=== PATIENT | female | born 1995 | race African-American/Black ===

== ENCOUNTER 2020-06-04 08:52 | Outpatient (CLI) | payer OTHER, SELFPAY ==
--- NOTE | ~2020-06-04 | US_ITS ---
EXAMINATION: US thyroid DATE: 06/04/2020 09:14 INDICATION: Goiter. TECHNIQUE: Multiple ultrasound images of the thyroid were obtained. COMPARISON: None. FINDINGS: The right thyroid lobe measures 5.0 x 1.8 x 2.0 cm. The left thyroid lobe measures 4.6 x 1.4 x 1.8 c m. In the right thyroid lobe, there is a 2.0 cm solid, isoechoic, tyysf-qbxq-zekc nodule with ill-de fined margin without echogenic foci (TI-RADS TR3). IMPRESSION: 1. Right thyroid nodule. Thyroid ultrasound is recommended in one year. Reviewed, dictated and finalized at location A. ERN CHANGER
== END 2020-06-04 08:53 ==
PROVIDERS: PCP Emergency Medicine; Visit Provider Emergency Medicine
DX: E04.9 Nontoxic goiter, unspecified (principal)
CPT/HCPCS: 76536

== ENCOUNTER 2020-08-12 14:45 | Outpatient (CLI) | payer OTHER, SELFPAY ==
--- NOTE | ~2020-08-12 | CT_ITS ---
EXAMINATION: CT abdomen pelvis wo/w con DATE: 08/12/2020 15:22 INDICATION: Hematuria TECHNIQUE: Computed tomography (CT) of the abdomen and pelvis was performed without intravenous contr ast. CT of the abdomen and pelvis was then performed with a total of 130 mL Omnipaque-350 intravenous contrast using a double-bolus technique for simultaneous opacification of the renal parenchyma and r enal collecting system. The dose-length product was 1287.05 mGy-cm. COMPARISON: None FINDINGS: Lung bases are clear. Heart size is normal. No pericardial or pleural effusion. Liver, gallbladder, s pleen, pancreas and bilateral adrenal glands are normal. Bowels including the appendix are normal.. There is a contrast-filled calyceal diverticulum at the upper pole of the right kidney. Bilateral kid neys are otherwise normal. 1 mm nonobstructing stone at the lower pole of the right kidney. No other urolithiasis or hydronephrosis. The mid to distal bilateral ureters remain decompressed and unopacifi ed with contrast. Contrast is seen at the bilateral ureterovesicular junctions with bilateral uretera l jets extending into the normal bladder. No urothelial irregularities identified along the contrast opacified portions of the renal collecting systems or ureters. 6.6 x 4.0 x 4.2 cm fat, soft tissue and fluid containing left ovarian dermoid. Right ovary and anteve rted uterus are unremarkable. Small amount of likely physiologic free fluid in the pelvis. Shotty darlene ateral inguinal lymph nodes. No pathologically enlarged abdominal or pelvic lymphadenopathy. Bones ar e unremarkable. IMPRESSION: 1. 1 mm nonobstructing right renal stone. 2. 6.6 x 4.0 x 4.2 cm left ovarian dermoid. Reviewed, dictated and finalized at location A.
== END 2020-08-12 14:46 ==
LOC: MICIMG 14:45
PROVIDERS: PCP Emergency Medicine; Visit Provider Emergency Medicine
DX: R31.9 Hematuria, unspecified (principal); N20.0 Calculus of kidney; D27.1 Benign neoplasm of left ovary
CPT/HCPCS: 74178; Q9967

== ENCOUNTER 2020-10-17 16:45 | Emergency (ER) | payer OTHER, SELFPAY ==
--- NOTE | ~2020-10-17 | XR_ITS ---
XR hand RT min 3V DATE: 10/17/2020 17:40 INDICATION: Smashed hand in door yesterday. Injury to the third and fourth digits. TECHNIQUE: 3 views COMPARISON: None FINDINGS: No fracture or dislocation, periosteal reaction or bone destruction. Joint spaces are prese rved. IMPRESSION: Negative Reviewed, dictated and finalized at location B. IMPRESSION: Negative
[2020-10-17 17:07] VITALS: BP 126/72; PULSE 105; RESP 16; TEMP 37.4; O2SAT 100
--- NOTE | 2020-10-17 17:32 | PC.NURSE ---
Pt to xray.
--- NOTE | 2020-10-17 19:45 | ED.UPPEXIN ---
HPI - Extremity Injury (Upper) General Chief Complaint: Extremity Injury, Upper Stated Complaint: R 4TH DIGIT INJURY Time Seen by Provider: 10/17/20 18:48 Source: patient Mode of arrival: ambulatory Limitations: no limitations History of Present Illness HPI narrative: This is a 25 year old female that presents to the ER for injury to the right hand sustained just prior to arrival. Reports she got her hand caught in a fireplace door. Reports decreased ROM in the 3rd and 4th fingers due to pain with bruising to the nails. Denies numbness. Related Data Allergies Allergy/AdvReac Type Severity Reaction Status Date / Time latex Allergy Unknown HIVES Verified 11/02/16 15:46 Review of Systems Review of Systems: Narrative: CONSTITUTIONAL: Denies fever MUSCULOSKELETAL: Reports joint pain, and myalgia. NEUROLOGIC: Denies numbness All systems reviewed & are unremarkable except as noted in HPI and below PMFSH Past Medical History Medical History (Updated 10/17/20 @ 19:51 by Lesley Parnell PA-C) History of seasonal allergies Social History Social History (Updated 10/17/20 @ 19:47 by Lesley Parnell PA-C) Smoking status: Never smoker Exam Narrative: Exam Narrative: GENERAL: Well-appearing, well-nourished, and in no acute distress. HEAD: Normocephalic, atraumatic. EYES: EOMI. EXTREMITIES: Normal range of motion. Mild edema about the right 3rd and 4th fingers distal phalanx. Mild bruising to the nailbeds. Normal radial pulses. Normal sensation SKIN: Warm, dry, no rash. NEURO: No focal deficits. Alert and oriented x3. PSYCH: Normal mood and affect Course Vital Signs Vital signs: Vital Signs Temperature 99.3 F 10/17/20 17:07 Pulse Rate 105 H 10/17/20 17:07 Respiratory Rate 16 10/17/20 17:07 Blood Pressure 126/72 10/17/20 17:07 Pulse Oximetry 100 10/17/20 17:07 Temperature 99.3 F 10/17/20 17:07 Pulse Rate 105 H 10/17/20 17:07 Respiratory Rate 16 10/17/20 17:07 Blood Pressure 126/72 10/17/20 17:07 Pulse Oximetry 100 10/17/20 17:07 MDM - Extremity Injury (Upper) MDM Narrative Medical decision making narrative: Patient presents to the emergency department for injury to the right third and fourth finger. Right hand x-ray is without acute osseous abnormalities. Patient instructed to rest, ice and take ywxq-zbw-liejyoj pain medication. She is to follow-up with primary care doctor. She was given warnings to return to the ER Imaging Data Radiologist's impression: ITS Impressions Hand X-Ray 10/17/20 17:42 IMPRESSION: Negative Critical Care Time Critical Care Time Critical Care Time: No Discharge Plan Discharge Clinical Impression: Contusion of finger of right hand Qualifiers: Encounter type: initial encounter Finger: unspecified finger Qualified Code(s): S60.00XA - Contusion of unspecified finger without damage to nail, initial encounter Patient Disposition: Home, Self-Care Condition: Stable Instructions: Contusion in Adults (ED), Crush Injury (ED) Additional Instructions: Return to the emergency department if you experience fever, redness and swelling of your hand, numbness, or any other symptoms that are concerning to you Rest. Elevate. Ice the area. Tylenol or ibuprofen as needed for pain Follow-up with your primary care doctor Follow-up/Referrals: Tejas Rios MD [Primary Care Provider] - 1 Week
[2020-10-17 20:45] VITALS: BP 121/80; PULSE 98; RESP 17; O2SAT 99
== END 2020-10-17 20:45 | disposition home or self-care (01) ==
PROVIDERS: Emergency Provider Emergency Medicine; PCP Emergency Medicine
DX: S60.00XA Contusion of unspecified finger without damage to nail, initial encounter (principal); W23.0XXA Caught, crushed, jammed, or pinched between moving objects, initial encounter
CPT/HCPCS: 73130; 99283

== ENCOUNTER 2022-03-05 10:54 | Outpatient (CLI) | payer OTHER, SELFPAY ==
--- NOTE | ~2022-03-05 | US_ITS ---
EXAMINATION: US thyroid DATE: 03/05/2022 11:11 INDICATION: Thyroid nodule. TECHNIQUE: Multiple ultrasound images of the thyroid were obtained. COMPARISON: Ultrasound thyroid 06/04/2020 FINDINGS: The right thyroid lobe measures 4.5 x 1.8 x 1.8 cm. The left thyroid lobe measures 4.4 x 2.1 x 1.6 c m. In the right thyroid lobe, there is a 4 mm nodule. In the left thyroid lobe, there is a 3 mm nodu le. IMPRESSION: 1. Small thyroid nodules, likely not clinically significant. No follow-up is needed. Reviewed, dictated and finalized at location A. ICAL ASSOCIATE IMPRESSION: 1. Small thyroid nodules, likely not clinically significant. No follow-up is ne eded.
== END 2022-03-05 10:55 ==
LOC: MICIMG 10:56
PROVIDERS: PCP Emergency Medicine; Visit Provider Emergency Medicine
DX: E04.2 Nontoxic multinodular goiter (principal)
CPT/HCPCS: 76536

== ENCOUNTER 2023-07-19 14:33 | Outpatient (CLI) | payer OTHER, SELFPAY ==
--- NOTE | ~2023-07-19 | XR_ITS ---
[id number] 07/19/2023 14:48 INDICATION: Left knee pain PROCEDURE: 2 views left knee COMPARISON: No prior studies for comparison. FINDINGS: Fracture, dislocation or subluxation is not identified. No significant joint effusion. The soft tissues appear within normal limits. No foreign bodies are identified. IMPRESSION: 1: NO ACUTE BONE OR JOINT ABNORMALITY IDENTIFIED. Reviewed, dictated and finalized at location A.
== END 2023-07-19 14:34 ==
LOC: MICIMG 14:35
PROVIDERS: PCP Emergency Medicine; Visit Provider Emergency Medicine
DX: M25.562 Pain in left knee (principal)
CPT/HCPCS: 73560

== ENCOUNTER 2024-06-04 04:55 | Emergency (ER) | payer OTHER, SELFPAY ==
[2024-06-04 04:58] VITALS: BP 129/83; PULSE 75; RESP 20; TEMP 36.3; O2SAT 100
[2024-06-04 06:33] VITALS: BP 133/98; PULSE 70; RESP 15; O2SAT 100
[2024-06-04] MEDS: SODIUM CHLORIDE 0.9% IV 1,000 ML 999 ML IV CONT (08:14)
[2024-06-04] MEDS: ONDANSETRON INJ 4 MG/2 ML VIAL IV PUSH (08:15)
--- NOTE | 2024-06-04 08:15 | ED.GENADULT ---
HPI - General Adult General Chief complaint: Abdominal Pain Stated complaint: abd pain Time Seen by Provider: 06/04/24 06:56 History of Present Illness HPI narrative: A 29-year-old female presenting ED with chief complaint of left lower quadrant abdominal pain. Pain started midnight she was sleeping. Is a sharp pain alternates to doll comes and goes. It is located in left lower quadrant. Patient has a known 7 cm cyst ovary. She has had nausea but no vomiting. No diarrhea. No fevers chills chest pain difficulty urinary symptoms. No dysuria vaginal discharge. Related Data Allergies Allergy/AdvReac Type Severity Reaction Status Date / Time latex Allergy Unknown HIVES Verified 06/04/24 05:02 [facility] Past Medical History Medical History History of seasonal allergies Social History Social History Smoking status: Never smoker Exam Narrative: APPEARANCE: No apparent distress. Head: atraumatic. EYES: EOMI, NOSE: Atraumatic NECK: Trachea midline RESPIRATORY: No increased rate of breathing clear to auscultation CARDIOVASCULAR: RRR, ABDOMINAL: Non-distended soft nontender no guarding rebound no CVA tenderness MUSCULOSKELETAl: No obvious deformities NEURO: Alert. Moving 4/4 extremities SKIN:: Warm, dry. Normal color PSYCHIATRIC: Normal affect Course Vital Signs Vital signs: Vital Signs Temperature 97.4 F L 06/04/24 04:58 Pulse Rate 75 06/04/24 04:58 Respiratory Rate 20 06/04/24 04:58 Blood Pressure 129/83 06/04/24 04:58 Pulse Oximetry 100 06/04/24 04:58 Oxygen Delivery Room Air 06/04/24 04:58 Temperature 97.4 F L 06/04/24 04:58 Pulse Rate 60 06/04/24 09:57 Respiratory Rate 16 06/04/24 09:57 Blood Pressure 137/87 06/04/24 09:57 Pulse Oximetry 100 06/04/24 09:57 Oxygen Delivery Room Air 06/04/24 04:58 Medical Decision Making MDM Narrative Medical decision making narrative: -Course: 29-year-old female presenting pain in the setting of a known ovarian cyst. Transvaginal ultrasound showed a large dermoid cyst. No evidence of torsion. CT redemonstrated the same. Re-evaluation patient is resting comfortably in bed. She will be discharged with pain medication instructed follow-up with her OBGYN for further management. Given return precautions for severe pain. -DDX includes but is not limited to: Ovarian torsion, ovarian cyst, colitis, gastroenteritis, viral syndrome Vital Signs Vital Signs: Vital Signs Temperature 97.4 F L 06/04/24 04:58 Pulse Rate 75 06/04/24 04:58 Respiratory Rate 20 06/04/24 04:58 Blood Pressure 129/83 06/04/24 04:58 Pulse Oximetry 100 06/04/24 04:58 Oxygen Delivery Room Air 06/04/24 04:58 Temperature 97.4 F L 06/04/24 04:58 Pulse Rate 60 06/04/24 09:57 Respiratory Rate 16 06/04/24 09:57 Blood Pressure 137/87 06/04/24 09:57 Pulse Oximetry 100 06/04/24 09:57 Oxygen Delivery Room Air 06/04/24 04:58 Lab Data 06/04/24 08:19 06/04/24 08:19 Labs: Lab Results 06/04/24 Range/Units 08:19 WBC 10.6 H (4.5-10.0) K/mm3 RBC 4.69 (4.2-5.4) M/mm3 Hgb 14.1 (12.0-15.0) g/dL Hct 44.3 (37.0-47.0) % MCV 94.5 (80-100) fl MCH 30.1 (26-34) pg MCHC 31.8 L (32-36) g/dl RDW 13.5 (11.5-14.5) % Plt Count 395 H (150-375) k/mm3 MPV 9.3 (7.4-10.4) fl Immature Gran % (Auto) 0.3 (0-0.5) % Neut % (Auto) 77.3 H (45.5-73.1) % Lymph % (Auto) 16.7 L (18.3-44.2) % [place] % (Auto) 5.2 (2.6-8.5) % Eos % (Auto) 0.3 (0-4.4) % Baso % (Auto) 0.2 (0.2-1.2) % Lymph # (Auto) 1.77 (0.9-3.2) K/mm3 [place] # (Auto) 0.6 (0.1-0.6) K/mm3 Eos # (Auto) 0.0 (0-0.3) K/mm3 Baso # (Auto) 0.0 (0.0-0.1) K/mm3 Abs Immat Gran (auto) 0.03 (0.00-0.031) K/mm3 Absolute Neuts (auto) 8.2 H (1.3-6.7) K/mm3 Absolute Nucleated RBC 0.000 (0.0-0.012) K/mm3 Nucleated RBC % 0.0 (0.0-0.2) % Sodium 139 (137-145) mmol/L Potassium 3.5 (3.4-5.0) mmol/L Chloride 101 (98-107) mmol/L Carbon Dioxide 25 (22-30) mmol/L Anion Gap 13 H (4-12) mmol/L BUN 11 (7-17) mg/dL Creatinine 0.79 (0.7-1.0) mg/dL Estim Creat Clear Calc 55 ml/min Estimated GFR > 60 (59 - ) Glucose 87 (65-110) mg/dL Calcium 9.8 (8.4-10.2) mg/dL Total Bilirubin 1.9 H (0.2-1.3) mg/dL AST 21 (14-36) U/L ALT 17 (6-35) U/L Alkaline Phosphatase 93 (38-126) U/L Total Protein 9.0 H (6.3-8.2) g/dL Albumin 4.7 (3.5-5.1) g/dL Lipase 45 (23-300) U/L Urine Color Yellow (Yellow) Urine Appearance Clear (Clear) Urine pH 6.5 (5.0-9.0) Ur Specific [place] 1.021 (1.001-1.035) Urine Protein Negative (Negative) mg/dL Urine Glucose (UA) Negative (Negative) mg/dL Urine Ketones Trace H (Negative) mg/dL Ur Blood (Man) Negative (Negative) Urine Nitrate Negative (Negative) Urine Bilirubin Negative (Negative) Urine Urobilinogen 1.0 (<2.0) mg/dL Leukocyte Esterase Rfl Negative (Negative) TONIE/UL Urine Test Negative Discharge Plan Discharge Clinical Impression: Ovarian cyst Patient Disposition: Home, Self-Care Condition: Stable Instructions: Antibiotic Form, Ovarian Cyst (ED) Additional Instructions: You were seen in the emergency department for abdominal pain. This is likely caused by a large dermoid cyst on your ovary. Please follow-up with your OBGYN for further management. If you develop severe pain, intractable nausea vomiting or if your condition worsens please return to ED for re-evaluation. You can use jnzh-tvk-oosbrnu Motrin/Tylenol for pain. Patient Language: Amharic Follow-up/Referrals: Tejas Rios MD [Primary Care Provider] -
[2024-06-04] MEDS: HYDROmorphone HCL INJ (*CRX) 1 MG/ML SYR 0.5 MG IV PUSH (08:16)
[2024-06-04 08:27] LABS: Basophils Percent Auto 0.2 % (0.2-1.2); Eosinophils Percent Auto 0.3 % (0-4.4); Hematocrit 44.3 % (37.0-47.0); Hemoglobin 14.1 g/dL (12.0-15.0); Immature Granulocyte Absolute 0.03 K/mm3 (0.00-0.031); Immature Granulocyte Percent A 0.3 % (0-0.5); Lymphocytes Absolute Auto 1.77 K/mm3 (0.9-3.2); Lymphocytes Percent Auto 16.7 % (18.3-44.2); Mean Corpuscular HGB Conc 31.8 g/dl (32-36); Mean Corpuscular Hemoglobin 30.1 pg (26-34); Mean Corpuscular Volume 94.5 fl (80-100); Mean Platelet Volume 9.3 fl (7.4-10.4); Monocytes Absolute Auto 0.6 K/mm3 (0.1-0.6); Monocytes Percent Auto 5.2 % (2.6-8.5); Neutrophils Absolute Auto 8.2 K/mm3 (1.3-6.7); Neutrophils Percent Auto 77.3 % (45.5-73.1); Platelet Count Result 395 k/mm3 (150-375); Red Blood Count 4.69 M/mm3 (4.2-5.4); Red Cell Distribution Width 13.5 % (11.5-14.5); White Blood Count 10.6 K/mm3 (4.5-10.0)
[2024-06-04 08:34] LABS: Add Urine Microscopic? NO; Appearance Urine Clear (Clear); Bilirubin Urine Negative (Negative); Blood Urine Negative (Negative); Color Urine Yellow (Yellow); Glucose Urine UA Negative (Negative); Ketones Urine Trace mg/dL (Negative); Leukocyte Esterase Ur Negative LEU/UL (Negative); Nitrate Urine Negative (Negative); Protein Urine Negative (Negative); Specific Grav Ur 1.021 (1.001-1.035); pH Urine 6.5 (5.0-9.0)
[2024-06-04 08:36] LABS: Alanine Aminotransferase 17 U/L (6-35); Albumin Level 4.7 g/dL (3.5-5.1); Alkaline Phosphatase 93 U/L (38-126); Anion Gap 13 mmol/L (4-12); Aspartate Amino Transferase 21 U/L (14-36); Bilirubin,Total 1.9 mg/dL (0.2-1.3); Blood Urea Nitrogen 11 mg/dL (7-17); Calcium 9.8 mg/dL (8.4-10.2); Carbon Dioxide 25 mmol/L (22-30); Chloride 101 mmol/L (98-107); Estimated CRCL calculation 55 ml/min; Estimated Glomerular Filt Rate > 60; Glucose 87 mg/dL (65-110); Lipase 45 U/L (23-300); Potassium 3.5 mmol/L (3.4-5.0); Sodium 139 mmol/L (137-145)
[2024-06-04 08:56] LABS: Pregnancy On Board Control Positive; Urine Pregnancy Test Negative
[2024-06-04 09:57] VITALS: BP 137/87; PULSE 60; RESP 16; O2SAT 100
[2024-06-04 10:23] VITALS: BP 131/93; PULSE 110; RESP 20; O2SAT 100
== END 2024-06-04 10:24 | disposition home or self-care (01) ==
PROVIDERS: Student in an Organized Health Care Education/Training Program; Emergency Provider Emergency Medicine; PCP Emergency Medicine
DX: D27.1 Benign neoplasm of left ovary (principal); N83.11 Corpus luteum cyst of right ovary
CPT/HCPCS: 36415; 74177; 76830; 76856; 80053; 81003; 81025; 83690; 85025; 96361; 96374; 96375; 99284; J1171; J2405; J7030; Q9967

== ENCOUNTER 2024-06-12 01:08 | Day surgery (SDC) | payer OTHER, SELFPAY ==
[2024-06-11 08:52] VITALS: BMI 25.6
--- NOTE | 2024-06-11 08:53 | PC.NURSE ---
Report to the Outpatient Waiting Room, entrance under the green pavilion located off [facility], at time _0730_ on date _[id number]_. Planned Procedure Time: _0930_.? Time changes happen often and if your time is changed the preop area will call you the afternoon before. - You and your visitor will be asked to self-screen and do not enter if you have any COVID symptoms. Please call surgeon if you need to reschedule. - A mask is optional within the hospital at this time. Patients may have clear liquids (water, carbonated beverages, clear teas, apple juice) until 3 hours prior to surgery with a maximum of 20 ounces. - No food from midnight until time of surgery and no smoking, or chewing tobacco (or any form of nicotine). No chewing gum, candy or mints. Take only the following medications with a SIP of water on the morning of surgery: ___None____ DO NOT STOP ANY OF YOUR OTHER PRESCRIPTION MEDICATIONS PRIOR TO SURGERY EXCEPT THE FOLLOWING Hold all vitamins and supplements for 3 days per anesthesiologist. Medications to discontinue per physician Date to take last dose Please no make-up, nail citizen of [place], hairspray, perfume, deodorant, or body powder the day of surgery.? No jewelry (including any body piercings) or valuables the day of surgery, leave them at home.? Please take a shower or bath the night before, or the morning of, surgery with an antibacterial soap.? Wear comfortable, loose fitting clothing.? - Jewelry must be removed prior to entering the operating room.? Rings and piercings that are not removed may be cut off. - The hospital will not accept responsibility for valuables.? - Please leave all valuables, including medications, at home the day of surgery. If you are going home after surgery, a licensed road train driver must drive you home.? - NO public transportation without another adult if you receive anesthesia. - We recommend that an adult stay with you for 24 hours following discharge. - We also recommend that you do not drive, make important decision, drink alcoholic beverages, or take any drugs that were not prescribed by your health care provider for at least 24 hours after your discharge time. Follow any additional instructions given to you from your surgeon. Telephone instructions given to __Tamikorashawn___and asked if any additional questions and then verbalized understanding. Patient advised to call surgeon office or pre surgery nurse liaison [phone] if any additional questions.
--- NOTE | 2024-06-11 12:54 | P.PNAN_ITS ---
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 [facility] Past Medical History Medical History (Updated 06/11/24 @ 12:57 by Ab Arshad DO) Depression Anxiety History of seasonal allergies Social History Social History (Updated 06/12/24 @ 06:53 by Ab Arshad DO) Smoking status: Former smoker Alcohol intake: current Living arrangements: with family Spiritual care concerns: No Anes - Eval Final PreProcedure Day of Procedure 06/11/24 12:54 Patient weight: overweight Heart: regular rate and rhythm Lungs: clear to auscultation Airway: Mallampati scale class II Neurological: alert and oriented Last oral intake: >/= 8 hours ASA classification: II Emergent: no Anesthetic plan: proceed Anesthesia type and monitoring: general ETT and standard monitoring Results Review: All pre-operative results and documents have been reviewed as part of the pre- operative evaluation. Informed Consent: The patient's anesthetic plan and its attendant risks and benefits were discussed with the patient/family/POA. Questions were solicited and answers provided to the satisfaction of the patient/family/POA.
[2024-06-12] VITALS (9 sets, daily range): BP systolic 117–168; BP diastolic 69–108; PULSE 67–89; RESP 12–16; TEMP 36.1–36.4; O2SAT 99–100
--- OUTSIDE RECORDS SUMMARY | 2024-06-12 01:14 | XMS_ITS | Clinical Summary ---
Author Organization [facility] HealthCare Care Team Providers Care Interpreter And Translator Name Role Phone Tejas Rios MD Primary Care Provider [phone] Allergies No known active allergies Medications amitriptyline (ELAVIL) 25 mg tablet Take 3 tablets (75 mg total) by mouth nightly. 90 tablet 5 01/11/20 18 Active Additional Information Patient not taking.Reported on 09/15/2020 topiramate (Topamax) 25 mg tablet take 1 Tablet by oral route TID 11/02/19 20 Active mirtazapine (REMERON АННА-TAB) 15 mg disintegrating tablet Take 15 mg by mouth nightly Takes half a pill at night Active Active Problems Problem Noted Date Diagnosed Date Thyroid nodule 09/15/2020 Assessment & Plan (09/15/2020 4:34 PM CDT): I looked at Mrs. gwen kelley thyroid under our ultrasound machine. I see a very normal thyroid gland without any well-defined, solid nodules. No intervention is indicated at this time Headache(784.0) 01/04/2017 Migraine with aura and witho ut status migrainosus, not intractable 01/04/2017 Surgical History Surgery Date Site/Laterality Comments PILONIDAL CYSTECTOMY Medical History Medical History Date Comments Depression Memory change Anxiety Sleep disorder Fatigue Chronic headaches Neck pain Numbness Sensation of both heat and cold Swelling Trouble breathing Family History Medical History Relation Name Comments Cancer Father Migraines Mother Hypertension Other Stroke Other Relation Name Status Comments Father Mother Other Social History Tobacco Use Types Packs/Day Years Used Date Smoking Tobacco: Former Smokeless Tobacco: Never Alcohol Use Standard Drinks/Week Comments Yes 0 (1 standard drink = 0.6 oz pur e alcohol) PHQ-2 Answer Date Recorded PHQ-2 Total Score (If total score is 3 or more points, staff should administer the PHQ-9) 0 09/15/2020 Personal Safety Answer Date Recorded Getting School Help Needed Not on file 05/31 Comments Unknown Sex and Gender Information Value Date Recorded Sex Assigned at Not on file Legal 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 Gender Identity Not on file Sexual Orientation Not on file Obstetrics History Last Filed Vital Signs Vital Sign Reading Time Taken Comments Blood Pressure 108/80 09/15/2020 12:08 PM CDT Pulse 87 09/15/2020 12:08 PM CDT Temperature 37 C (98.6 F) 01/22/2013 7:23 PM CDT Respiratory Rate 12 09/15/2020 12:08 PM CDT Oxygen Saturation 100% 01/22/2013 7:23 PM CDT Inhaled Oxygen Concentration - - Weight 76.9 kg (169 lb 9.6 oz) 09/15/2020 12:08 PM CDT Height 160 cm (5' 3 ) 09/15/2020 12:08 PM CDT Body Mass Index 30.04 09/15/2020 12:08 PM CDT Plan of Treatment Not on file Insurance Care Teams Interpreter And Translator Relationship Specialty Start Date End Date Tejas Rios MD [address] [place] [address] PCP - General Family Medicine 07/15/20
--- OUTSIDE RECORDS SUMMARY | 2024-06-12 01:14 | XMS_ITS | Continuity of Care Document ---
Author Organization [facility] Address [address] [place] [address] Phone Care Team Providers Care Weir Fisherman Name Role Phone Geronimo Mobley MD Unavailable Unavailable Advance Directives Directive Yes / No Effective Date File Name No Information Encounters Encounter Description Practice Location Reason(s) For Visit Diagnoses Date Provider Providers Copied on Encounter [facility], [address], [place], [place], [id number], [place] tel:[phone] [facility] No Information Itz Melton. [address] , [place], [place], [id number], [place]. tel:[phone] Referring Provider: Joss Moore, [address], [place], [address]. tel:[phone] Family History Family Member Type Diagnosis Age At Onset No Information Payers Payer name Insurance type Covered democrat ID Authoriza tion(s) BCBS INACTIVE OUT OF STATE [id number] Social History Type Description Quantity Date Captured Comments Sex Female Smoking Status No Information Chief Complaint And Reason For Visit No Information Reason For Referral Reason For Referral No Information History Of Present Illness Encounter Date Complaint History Of Prese nt Illness No Information Functional Status Date Functional Assessmen t No Information Instructions Date Instruction Additional Infor mation No Information Assessments Type Assessment Date No Information Patient Care Teams Name Effective Dates (start - stop) Status Members No Information
--- OUTSIDE RECORDS SUMMARY | 2024-06-12 01:14 | XMS_ITS | Data Portability ---
Author Organization [place] [facility], Main Office Address [address] [place] [address] Care Team Providers Care Watch Manufacturing Supervisor Name Role Phone GARIMA CATARINA Primary Care Provider CATARINA [employer] Referring Provider Assessment Encounter Date Assessment Date Assessment LastModified by Organization Details LastModified Time 07/31/2023 07/31/2023 28-year-old patient presents today with left knee pain and swelling that has been going on for the last month. She denies any injury. She states that she played soccer growing up and had multiple sports-related injuries in the legs but no fractures or injuries that needed surgery. Over the last few weeks she has been feeling a sharp pain under her kneecap and swelling. She states that she recently got a job where she is doing more standing and walking and believes this could be why. For treatment she has tried wearing a brace when she is doing physical activities and taking Tylenol. Review of systems per patient questionnaire Imaging: X-rays reviewed show no acute bony abnormality, no fracture. Preserved joint spaces throughout. Physical exam: Nonantalgic gait. No edema noted today. Negative patellar grind. No pain with palpitation around the knee. Some discomfort with deep flexion. Negative Alvaro's. Stable Nikhil's with firm endpoint, stable varus/ valgus stress. Sensation intact throughout. We will start with a course of therapy exercises that she can work on at home. We will provide her with an exercise handout. We also recommend taking anti-inflammator ies if the swelling and pain returns. She can wear a brace as needed if it is comfortable for her. We can see her back as needed if the pain and swelling progress. She is in agreement with this plan. [email or web address] Not available 08/01/2023 17:44:05 Plan of Treatment Reminders Order Date Submit Date Provider Last Modified By Organization Details Last Modified Time Details Appointments None record ed. Lab None record ed. Referral None record ed. Procedures None record ed. Surgeries None record ed. Imaging None record ed. Medication Orders None record ed. Patient TargetsNo targets recorded. Patient InstructionsNo instructions recorded. Reason for Referral None Reported. Results Created Date Observation Date Name Description Value Unit Range Abnormal Flag Note LastModifiedBy Organization Detail LastModifiedTime 08/13/1907/19/2023 XR, knee No observ ation record ed. [email or web address] Not Available 2023 16:20:42 Result Notes None recorded. Problems Name Problem SNOMED Code Status Onset Date Resolution Date Notes Provider Name and Address Organization Details Recorded Time Pain of left knee joint 396187309249630 Active 2023 [facility] [place], [facility] [employer] [facility] 15:27:33 Problem Notes None recorded. Procedures Surgical History None recorded. Imaging Results Imaging Date Name Status LastModified by Organiz ation Details LastModified Time 07/19/2023 XR, knee completed [email or web address] Information no t available 08/13/2023 16:20:42 Procedure Notes None recorded. Medical Equipment None Reported. Medications Name Sig Start Date Stop Date Status Note LastModified by Organization Details LastModified Time meloxicam 15 mg tablet TAKE 1 TABLET BY MOUTH EVERY DAY active Not Available Not Available No t Available olanzapine 5 mg tablet TAKE 1 TABLET BY MOUTH EVERYDAY AT BEDTIME active Not Available Not Available No t Available olanzapine 10 mg tablet TAKE 1 TABLET BY MOUTH EVERY DAY 07/30 completed Not Available Not Available Not Available metronidazo le 500 mg tablet TAKE 1 TABLET BY MOUTH EVERY 12 HOURS FOR 7 DAYS active Not Available Not Available No t Available albuterol sulfate HFA 90 mcg/actuati on aerosol inhaler INHALE 2 PUFFS BY MOUTH EVERY 4-6 HOURS NEEDED FOR WHEEZING OR SHORTNESS OF BREATH active Not Available Not Available No t Available lurasidone 40 mg tablet TAKE 1 TABLET BY MOUTH EVERY DAY IN THE EVENING WITH FOOD active Not Available Not Available No t Available Ajovy 225 mg/1.5 mL subcutaneou s auto-inject or INJECT THE CONTENTS OF 1 PEN UNDER THE SKIN IN THE ABDOMEN/T HIGH/UPPE R ARM ONCE MONTHLY active Not Available Not Available No t Available Vitals Date Recorded Body height Body mass index (BMI) Body weight Pain severity - 0-10 verbal numeric rating [Score] - Reported Provider Name and Address Organization Details Last Updated DateTime 07/31/2023 160.02 cm 26.6 kg/m2 12362.86 g 4 [facility] [place] [facility] [address] [facility] 07/31/2023 15:25:50 Social History Question Answer Notes LastModified by Organizat ion Details LastModified Time Tobacco Smoking Status Unknown If Ever Smoked [facility] [place] null, [facility] [address] [facility] 07/31/2023 15:27:09 What Is Your Level Of Alcohol Consumption? Occasional [email or web address] Information not available 07/31/2023 What Was The Date Of Your Most Recent Tobacco Screening? 07/31/2023 Information not available 07/31/2023 Sex: Unknown Functional Status None recorded. Mental Status None recorded. Family History Relationship Description Onset Age of this Age Resolved Age Notes LastModified by Organization Details LastModified Time Mother Family history of malignant neoplasm [email or web address] Not available 2023 15:26:24 Maternal Grandmother Heart disease Not available 2023 15:26:40 Maternal Grandmother Hypertensive disorder [email or web address] Not available 2023 15:26:53 Medical History No medical history recorded. Gynecological HistoryNo gynecological history recorded. Obstetrics History GPAL:G 0 P 0 0 0 0 Past Encounters Encounter ID Performer Location Encounter Start Date Encounter Closed Date Diagnosis/Indication Diagnosis SNOMED-CT Code Diagnosis ICD10 Code Diagnosis Note [id number] Renetta Holm NP [facility] [address] [place] [address] 07/31/2023 14:55:31 07/31/2023 15:40:30 Pain of left knee joint 1453873289 00772 M25.562 Health Concerns Section Related Observation LastModified by Organization Detai ls LastModified Time None Recorded Concern Status LastModified by Organization Details LastModified Time None Recorded Advance Directives Directive None Recorded Payers Encounter Date Sequence Insurance Name Policy Number Policy Maddox Covered Member ID Maddox Member ID Guarantor Name 07/31/2023 1 [facility] [id number] Monroe Mckeon [id number] [facility] [id number] 1GGAL Mckeon OBGyn Episode No OBEpisode recorded.
--- OUTSIDE RECORDS SUMMARY | 2024-06-12 01:14 | XMS_ITS | Data Portability ---
Author Organization [facility] Address [address] [place] [address] [place] [address] Care Team Providers Care Agents' Records Clerk Name Role Phone CATARINA PAINTING Primary Care Provider Assessment Encounter Date Assessment Date Assessment LastModified by Organization Details LastModified Time 04/23/2024 04/23/2024 Annual gynecological exam performed. Patient will come back in a year unless there are new symptoms. [email or web address] Not available 04/23/2024 12:23:05 Plan of Treatment Reminders Order Date Submit Date Provider Last Modified By Organization Details Last Modified Time Details Appointments SURG Lap Ovarian Cystectom y 2024 07:30A Nataliya CONWAY MD Not available Not available Not available SURG POST OP 2024 01:15P Nataliya CONWAY MD Not available Not available Not available Lab None recorded. Referral None recorded. Procedures None recorded. Surgeries hysterosc opy, removal of foreign body (SURG) [address], [facility] [address], [address], 06/08/2024 10:03:17 laparosco pic ovarian cystectom y (SURG) [address], [facility] [address], [address], 06/08/2024 09:47:41 Imaging US, transvagi nal 2024 025 CYNTHIA [place], [address], [address], [place], [address], 06/10/2024 18:46:27 US, transvagi nal 2024 025 [email or web address] [place], [address], [place], [address], 05/13/2024 20:09:28 US, pelvis, complete 2024 025 CYNTHIA [place], [address], [place], [address], 05/04/2024 04:01:33 Medication Orders None recorded. Patient TargetsNo targets recorded. Patient InstructionsNo instructions recorded. Reason for Referral None Reported. Results Created Date Observation Date Name Description Value Unit Range Abnormal Flag Note LastModifiedBy Organization Detail LastModifiedTime 04/23/1904/23/2024 IMAGE GUIDE D PAP AND HPV REGAR DLESS image guided Pap, HPV regardless of Pap result SEE RESULT S BELOW CASE REPOR T: Cytol ogy Gynec ologi radha Repor t Case: [id number] Autho heidi g Provi marck: Natalya Morgan, CARISA Colle cted: 04/23 1506 Order ing Locat ion: [place] [facility] Recei nick: 04/24 0841 First Scree n: Ximena Aiken h, CT Speci men: Scree marissa Pap - Image d, Cervi x STATE MENT OF ADEQU ACY: Satis facto ry for evalu ation Trans forma tion zone compo nent prese nt ----- ----- ----- ----- ----- ----- ----- ----- ----- ----- ----- ----- ----- ----- ----- ----- ----- ---- FINAL DIAGN OSIS: Negat suzette for Intra epith elial Lesjosiane n or Chago kellogg (NIL) . Shift in hilario sugge stive of bacte rial vagin osis. Elect deion rossrick sandoval d by Ximena Aiken, CT on 2024 at 1155 [employer] ----- ----- ----- ----- ----- ----- ----- ----- ----- ----- ----- ----- ----- ----- ----- ----- ----- ---- HPV RESUL TS: HPV mRNA E6/E7 : No HPV mRNA Detec laura NOTE: This high risk HPV mRNA assay detec ts fourt een high- risk HPV types (16, 18, 31, 33, 35, 39, 45, 51, 52, 56, 58, 59, 66, 68) witho ut diffe renti ation . COMME NT: This speci men was revie wed by a Cytot echno logis t and/o r Patho logis t (as indic ated in this repor t) after evalu ation using the Thinp rep Imagi ng Syste m. CLINI RADHA INFOR MATIO N: Menst rual Statu s: LMP (if appli cable ): Clini radha Histo ry/Pr eviou s Pap: Type of Neopl patrice (if appli cable ): Signi fican t Clini radha Findi ngs: Other Histo ry: Hormo tyler (if appli cable ): PAP EDUCA JULIANO L NOTE: The Pap Test is a scree marissa test with an inher ent false negat suzette rate. Liqui d-bas ed sampl ing may decre ase, but will not elimi deb, false negat suzette resul ts. A negat suzette resul t does not precl ude the prese nce and/o r devel opmen t of disea se, since the prese nce of abnor mal cells in the sampl e depen ds on the locat ion of the lesio n and sampl ing techn ique. [place] nued regul ar scree marissa is the best metho d of cance r preve ntion . If repor laura cytol ogic findi ng do not corre late with physi radha and/o r histo rical findi ngs, furth er inves tigat ion is recom rosario d, as clini martha miles nted. Not Available [facility] (Lab) [address], [place], [address], 04/30/2024 12:59:23 04/23/19 25 04/23/2024 TRICH OMONA S VAGIN NIDIA (RRNA ) trichomonas vaginalis ribosomal RNA (rrna) Negati ve negati ve Not Available [facility] (Lab) [address], [place], [address], 04/30/2024 12:59:24 04/23/19 25 04/23/2024 CT/GC (BLANCA) , THINP REP VIAL chlamydia trachomatis, PCR Negati ve negati ve Not Available [facility] (Lab) [address], [place], [address], 04/30/2024 12:59:24 04/23/19 25 04/23/2024 CT/GC (BLANCA) , THINP REP VIAL neisseria gonorrhoeae, PCR Negati ve negati ve Not Available [facility] (Lab) [address], [place], [address], 04/30/2024 12:59:24 05/13/19 25 05/13/2024 US, trans vagin al No observ ation record ed. [facility] [address], [place], [address], 05/13/2024 18:21:41 05/13/19 25 05/13/2024 US, trans vagin al No observ ation record ed. [email or web address] [address], [place], [address], 05/19/2024 17:47:23 06/11/19 25 06/10/2024 US, pelvi s No observ ation record ed. [email or web address] [address], [place], [address], 06/10/2024 21:04:39 06/11/19 25 06/10/2024 US, trans vagin al No observ ation record ed. [email or web address] [place] [address], [place], [address], 06/10/2024 18:46:27 Result Notes None recorded. Procedures Surgical History Date Name Laterality Status Provider Name and Address Organization Details Recorded Time 5 Date of Last Pap Smear completed Claire Peace [facility] 06/10/2024 13:44:09 4 IUD Insertion completed TRINI Dykes [address], [place], [address], [place] [facility] 04/25/2023 15:20:42 9 removal of pilonidal cyst completed Katlyn Quach [facility] 04/09/2023 15:31:21 Imaging Results Imaging Date Name Status LastModified by Organization Details LastModified Time 05/13/2024 US, transvaginal completed michelle phoenix [address], [place], [address], 05/13/2024 18:21:41 05/13/2024 US, transvaginal completed [email or web address] [address], [place], [address], 05/19/2024 17:47:23 06/10/2024 US, pelvis completed [email or web address] [address], [place], [address], 06/10/2024 21:04:39 06/10/2024 US, transvaginal completed [email or web address] Pereyra e [address], [place], [address], 06/10/2024 18:46:27 Procedure Notes None recorded. Medical Equipment None Reported. Allergies No known drug allergies Medications Name Sig Start Date Stop Date Status Note LastModified by Organization Details LastModified Time Mirena 21 mcg/24 hr (up to 8 years) 52 mg intrauterin e device Take 1 device by intrauter ine route. 2023 active Not Available Not Available Not Avai lable meloxicam 15 mg tablet TAKE 1 TABLET BY MOUTH EVERY DAY 04/23 completed Not Available Not Available Not Available olanzapine 5 mg tablet TAKE 1 TABLET BY MOUTH EVERYDAY AT BEDTIME 05/24 completed Not Available Not Available Not Available olanzapine 10 mg tablet TAKE 1 TABLET BY MOUTH EVERY DAY 04/09 completed Not Available Not Available Not Available metronidazo le 500 mg tablet TAKE 1 TABLET BY MOUTH EVERY 12 HOURS FOR 7 DAYS 04/25 completed Not Available Not Available Not Available albuterol sulfate HFA 90 mcg/actuati on aerosol inhaler INHALE 2 PUFFS BY MOUTH EVERY 4-6 HOURS NEEDED FOR WHEEZING OR SHORTNESS OF BREATH active Not Available Not Available No t Available lurasidone 40 mg tablet TAKE 1 TABLET BY MOUTH EVERY DAY IN THE EVENING WITH FOOD 04/09 completed Not Available Not Available Not Available Ajovy 225 mg/1.5 mL subcutaneou s auto-inject or INJECT THE CONTENTS OF 1 PEN UNDER THE SKIN IN THE ABDOMEN/T HIGH/UPPE R ARM ONCE MONTHLY 04/09 completed Not Available Not Available Not Available Dolishale 90 mcg-20 mcg (28) tablet 04/09 completed Not Available Not Available Not Available Vitals Date Recorded Body height Body mass index (BMI) Body weight Systolic blood pressure Diastolic blood pressure Provider Name and Address Organization Details Last Updated DateTime 04/23/2024 160.02 cm 24.8 kg/m2 20877.93 g 126 mm[Hg] 84 mm[Hg] JS Agrawal [facility] 5 12:26:10 Date Recorded Body height Body mass index (BMI) Body weight Systolic blood pressure Diastolic blood pressure Provider Name and Address Organization Details Last Updated DateTime 05/26/2024 160.02 cm 25 kg/m2 91144.52 g 123 mm[Hg] 86 mm[Hg] Airam Aviles [facility] 5 11:28:28 Date Recorded Body height Provider Name an d Address Organization Details Last Updated DateTime 06/10/2024 160.02 cm Claire Peace [facility] 06/10/2024 13:43:30 Social History Question Answer Notes LastModified by Organizat ion Details LastModified Time Tobacco Smoking Status Former Smoker Claire Peace [email or web address] [facility] 04/25/2023 14:46:41 Do You Have An Advance Directive? No [email or web address] Information not available 04/23/2024 What Is Your Level Of Alcohol Consumption? Occasional Information not available 04/09/2023 How Many Years Have You Consumed Alcohol? 10 [email or web address] Information not available 04/23/2024 Are You Blind Or Do You Have Difficulty Seeing? Yes Information not available 04/09/2023 What Is Your Level Of Caffeine Consumption? Heavy Information not available 04/09/2023 How Much Tobacco Do You Chew? None Information not available 04/09/2023 In The 14 Days Before Symptom Onset, Have You Had Close Contact With A Laboratory-confir med COVID-19 While That Case Was Ill? No Information not available 04/09/2023 In The 14 Days Before Symptom Onset, Have You Had Close Contact With A Person Who Is Under Investigation For COVID-19 While That Person Was Ill? No Information not available 04/09/2023 Have You Been To An Area Known To Be High Risk For COVID-19? No Information not available 04/09/2023 Are You Deaf Or Do You Have Serious Difficulty Hearing? Yes [email or web address] Information not available 04/23/2024 What Type Of Diet Are You Following? REGULAR Information not available 04/09/2023 What Is The Highest Grade Or Level Of School You Have Completed Or The Highest Degree You Have Received? 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 [employer] Worker [email or web address] Information not available 04/23/2024 When Did You Quit Smoking? 6-10yearssincel faviola Quit 7 Years Ago [email or web address] Information not available 04/25/2023 Are There Any Guns Present In Your Home? No Information not available 04/09/2023 Do You Use Protection During Sex? Usually Information not available 04/09/2023 Do You Use Your Seat Belt Or Car Seat Routinely? No Information not available 04/23/2024 Are You Sexually Active? Yes Information not available 05/24/2023 Do You Have Smoke And Carbon Monoxide Detectors In Your Home? Yes Information not available 04/09/2023 How Much Tobacco Do You Smoke? No Information not available 04/09/2023 Do You Feel Stressed (tense, Restless, Nervous, Or Anxious, Or Unable To Sleep At Night)? [id number] Information not available 04/09/2023 Do You Use Any Illicit Or Recreational Drugs? No Information not available 04/09/2023 Do You Use Sunscreen Routinely? Yes Information not available 04/09/2023 Have You Used IV Drugs? No Information not available 04/09/2023 Sex: Unknown Functional Status Question Answer Note LastModified by Organizat ion Details LastModified Time Do you have difficulty walking or climbing stairs? No Information not available 05/24/2023 Are you able to walk? YESWOREST Information not available 04/09/2023 Are you able to care for yourself? Yes Information not available 05/24/2023 Do you have difficulty dressing or bathing? No Information not available 05/24/2023 What is your exercise level? Occasional Information not available 04/09/2023 Mental Status None recorded. Family History Relationship Description Onset Age of this Age Resolved Age Notes LastModified by Organization Details LastModified Time Mother Mental disorder Not available 2023 15:12:53 Maternal Aunt Multiple sclerosis Not available 2023 15:12:53 Maternal Aunt Mental disorder Not available 2023 15:12:53 Maternal Grandmother Hypertensive disorder Not available 2023 15:12:53 Maternal Grandmother Heart disease Not available 2023 15:12:53 Maternal Grandmother Mental disorder Not available 2023 15:12:53 Sister Anemia Not available 04/09/2023 15:12:53 Medical History Condition Response Allergies (Food, seasonal, environmental ) Y Other N Drug/Latex Allergies/Reactions Y Blood Transfusion N Breast Cancer N Dermatologic Disorders Y Lung Disease N Defects or Inherited Disease N Breast Problem N Gestational Diabetes N Hematologic disorders N Anesthesia Complications N History of STI N Deep Vein Thrombosis N Polycystic ovary syndrome N Anxiety Disorder N Autoimmune disease N Arthritis N Polyps N Infertility N Acid Reflux (GERD) N History of abnormal pap N Cancer N Varicosities N Stroke N Neurologic/Epilepsy N Endometriosis N High Cholesterol N Fibromyalgia N Headaches Y Kidney Disease N Heart Problems N Thyroid Problems Y Kidney or Bladder Problems N GI Problems N Eating Disorder N Anemia N Art (IVF or FET) N Psychiatric Illness N Ovarian Cancer N Diabetes N Pulmonary (TB, Asthma) N Hepatitis/Liver Disease N No Past Medical History N Eczema N Urinary Tract Infection N Abuse/Domestic Violence N Asthma N Trauma/Violence N Depression/ depression Y Heart Disease N Pre-Eclampsia N Hypertension N Osteoporosis N Thrombophilias N Gynecological History Statement/Question Response Abnormal Pap Y Flow Moderate Date of LMP 05/14/2024 N Was last menstrual period normal Y STIs/STDs Y HPV Vaccine Y Duration of Flow (days) 7 Current Control Method IUD Are cycles usually normal Y Sexually Active? Y Menses Monthly Y Age of first menstrual cycle 10 Date of Last Pap Smear 04/23/2024 Sexual Problems? N Desired Control Method IUD LMP Definite N 08/06/2016 Obstetrics History GPAL:G 1 P 0 0 1 0 Type Value Induced 1 Living 0 Total 1 Past Encounters Encounter ID Performer Location Encounter Start Date Encounter Closed Date Diagnosis/Indication Diagnosis SNOMED-CT Code Diagnosis ICD10 Code Diagnosis Note [id number] TRINI Dykes [place] [address] [address] 04/09/2023 14:59:07 04/09/2023 16:25:21 Vaginitis 44312447 N76.0 suspect BVrx sent, r/b/a reviewedvu lvar care guidelines discussed Gynecologi c examination 06293502 Z01.419 WWEpap updatedgc/ ct/trich testing added to pap Take Calcium with Vitamin D daily if not receiving in daily diet.It is strongly advised to have an annual flu shot and up can obtain at most pharmacies . If you have not had a TDap shot in the last 10 years you should obtain one as well.Discu ssed with patient & provided with informatio n regarding Gardisil vaccine to prevent the 4 strains for HPV that cause cervical cancer if under age 26.Encoura ge safe sexual practices, to use condoms and limit partners if not already in a monogamous relationsh ip.Do monthly self breast exams. Engage in daily exercise of low impact aerobic exercise 45-60 minutes 4-5 times weekly. Avoid tobacco and illicit drugs. This lifestyle behavior pattern will lead to less health conditions and longer life span. If BMI greater than 25 dietary consult advised.Marek cruz received above instructio ns, and questions have been answered. If you have any questions please call or respond to this email.Vanessa stockton was made aware of the patient portal and may obtain a paper copy of today's plan if desired. [facility] [id number] Z30.9 all methods discussedi nt in DMPA vs mirena IUD, handouts givenr/b/a reviewed including risk of weight gain and bone density loss with DMPAif desired will return with next period for insertion Time spent in visit is a total of 35 mins with at least 50% of visit consisting of counseling and review of plan of care. [id number] TRINI Dykes [place] [address] [address] 04/23/2024 12:19:48 04/23/2024 14:38:46 Gynecologic examination 83900311 Z11.51 Z11.3 Z11.8 WWEBC - Mirena IUD, inserted 4P ap - done todaySTI screen - Gc/ct/tric h testing added to papRoutine labs - PCPRTC in 1 yr or sooner if needed It is strongly advised to have an annual flu shot and up can obtain at most pharmacies . If you have not had a TDap shot in the last 10 years you should obtain one as well. Discussed with patient & provided with informatio n regarding the HPV vaccine if applicable . Encourage safe sexual practices, to use condoms and limit partners if not already in a monogamous relationsh ip. Do monthly self breast exams. BRCA testing is now available for patients with strong genetic history of female cancer. If interested contact the office. Engage in regular exercise. Avoid tobacco and illicit drugs. This lifestyle behavior pattern will lead to less health conditions and longer life span. If BMI greater than 25 dietary consult advised. Questions answered. Venereal d isease screening 626256144 Z11.3 IUD check 691827093 Z30. 431 non visualized IUD strings on exampelvic u/s ordered for IUD check [id number] TRINI Dykes [place] [address],[place] [address] 04/25/2023 14:46:01 04/25/2023 16:24:10 Insertion of intrauterine contraceptive device 03341005 Z30.430 UPT (-)r/b/a reviewedmi fantasma IUD consent reviewed and signed by ptIUD insertion performed (see procedure note)RTC for string check in 4-6 weeks Contracept ion care management 891153419 Z30.9 [id number] TRINI Dykes [place] [address],[place] [address] 05/24/2023 11:26:23 05/24/2023 11:56:22 IUD check 978377476 Z30.431 Patient is here for 4-6wk IUD string check.(+) IUD strings noted on exam She denies complicati ons, pain, or unpleasant side effects. Happy with this control method. Wishes to continue.R TC for WWE or sooner if needed Time spent in visit is a total of 18 mins with at least 50% of visit consisting of counseling and review of plan of care. [id number] Nikia Blackwood [place] [address],[place] [address] 05/13/2024 16:52:57 05/13/2024 18:24:24 Mechanical complication of intrauterine contraceptive device 367318482 T83.39XA [id number] Jarrell Conway MD [place] [address],[place] [address] 05/26/2024 11:08:47 05/26/2024 12:15:06 Benign teratoma of ovary 764597224 D27.9 this patient is a 29-year-ol d female with pelvic pain, benign teratoma of the ovary, malpositio simone the IUD. We have agreed to perform laparoscop ic left ovarian cystectomy and hysterosco pic removal of foreign body. She understand s the risks, benefits, and alternativ es. She has completed the informed consent process and is ready to proceed. I spent over 30 minutes patient's care in total. Mechanical complication of intrauterine contraceptive device 130714040 T83.39XA [id number] Gabbie Mirtha [place] [address] [address] 06/10/2024 11:53:24 06/10/2024 14:01:58 Pain in pelvis 21937171 R10.2 [id number] Jarrell Conway MD [place] [address] [address] 06/10/2024 13:37:25 06/11/2024 05:13:43 Benign teratoma of ovary 851474145 D27.9 this patient is a 29-year-ol d female with pelvic pain, benign teratoma of the ovary, malpositio simone the IUD. We have agreed to perform laparoscop ic left ovarian cystectomy and hysterosco pic removal of foreign body. She understand s the risks, benefits, and alternativ es. She has completed the informed consent process and is ready to proceed. I spent over 20 minutes patient's care in total. The procedure has been reschedule d For 2 days from now Due to worsening pain. Mechanical complication of intrauterine contraceptive device 610363901 T83.39XA Pain in pelvis 70826673 R10.2 Health Concerns Section Related Observation LastModified by Organization Detai ls LastModified Time None Recorded Concern Status LastModified by Organization Details LastModified Time None Recorded Advance Directives Directive N: Payers Encounter Date Sequence Insurance Name Policy Number Policy Maddox Covered Member ID Maddox Member ID Guarantor Name 04/23/2024 1 [facility] - DOS PRIOR TO 2024 (O) [id number] Monroe Mckeon [id number] Monroe Mckeon 05/13/2024 1 [facility] - DOS PRIOR TO 2024 (PPO) [id number] Monroe Mckeon [id number] Monroe Mckeon 05/26/2024 1 [facility] - DOS 04/08/2024 AND AFTER [id number] Monroe Mckeon [id number] Monroe Howarden 06/10/2024 1 [facility] DOS 04/08/2024 AND AFTER [id number] Monroe Mckeon [id number] Monroe Howarden 06/10/2024 1 [facility] DOS 04/08/2024 AND AFTER [id number] Monroe Mckeon [id number] Monroe Mkceon Notes Date Note Type Note Provider Name and Address Organization Details Recorded Time 04/23/2024 text/html Annual GYNReport ed bypatient.Menstrual cycle:Normal menses Urinary symptoms:No hematuria; No incontinence Vulva:No genital lesion Vagina:Normal vaginal discharge Breast:No breast pain; No breast lump; No nipple discharge Current Contraception:Satis fied with current contraception; Intrauterine device (iud) Sexual complaints:No sexual complaints; No pain during intercourse; Normal libido Menopausal Symptoms:No menopausal symptoms; Normal vaginal lubrication Psychological symptoms:No depression; No anxiety; No PMDD Preventive measures:Encourage self breast examination; Encourage regular exercise; Encourage no tobacco use; Encourage regular mammograms starting age 38Notes:31yowweBC - Mirena IUD, inserted 04/25/2023last pap 04/09/2023 : nilm, HPV (-)h/o abnormal pap/ HPV (+) 2016 TRINI Dykes [address], [place], [address], [facility] 04/23/2024 13:50:04 05/26/2024 text/html This patient is a 29-year-old female presents for follow-up on ultrasound. She has a 7 cm dermoid. She has a mal positioned IUD. We discussed treatment options in detail. We agreed to perform laparoscopic left ovarian cystectomy with possible left oophorectomy and hysteroscopic removal of IUD. The patient understands the procedure. The procedure was described to the patient in great detail. the patient also understands the risks. The risks were also explained in detail. She understands that injuries May occur during surgery. She understands these injuries can result in hospitalization, more surgery, and severe illness. She understands there is risk of hemorrhage and infection. Jarrell Conway MD [address], [place], [address], [facility] 05/26/2024 12:11:21 06/10/2024 text/html THIS PATIENT IS A 29-YEAR-OLD FEMALE with a large dermoid tumor. She was seen recently in the emergency department. Her pain has become worse. We discussed treatment options. She has been on the schedule for laparoscopic cystectomy. We agreed to move her up. We are going to proceed with laparoscopic left ovarian cystectomy. The patient understands the procedure. The procedure was described to the patient in great detail. the patient also understands the risks. The risks were also explained in detail. She understands that injuries May occur during surgery. She understands these injuries can result in hospitalization, more surgery, and severe illness. She understands there is risk of hemorrhage and infection. Jarrell Conway MD [address], [place], [address], [facility] 06/10/2024 21:54:49 OBGyn Episode Ob Episode Information Episode Created Date Number of Fetuses Patient Bloodtype Patient rh Status Prepregnancy Weight lbs Domestic Partner Domestic Partner Phone Father Name Derivatives Trader Status 04/09/19 24 1 CLOSED Fetus Data First Name Last Name Admitted to NICU Weight (g) Sex Living Outcome Pediatric Complications Fetus ID Race Codes Race Delivery Type , Induced [id number] Chato Calculation Initial Chato Date Initial Exam Date Initial Exam Provider Initial Ultrasound Date Last Menstrual Period Date Ultra Sound Weeks Gestation 0 Eighteen To Twenty Week Chato Update Ultra Sound Date Fundal Height At Umbil Quickening Date Ultra Sound Latest Weeks Gestation Final Chato Confirmed By Final Chato Confirmed Date Final Chato Date Ultra Sound Latest Days Gestation 0 0 Menstrual History Last Menstrual Date Menses Monthly On Bcp Conception Prior Menses Frequency Hcg Plus Date Menarche Onset Age Delivery Information Delivery Date Delivery Type Labor Anesthesia Weeks Gestation Incision Type Labor Labor Length Hrs Delivered By Post Complications Tubal Sterilization Discharge Date Comments 6 Discharge Information Feeding Method Contraceptive Method Maternal HG B and HCT Levels
--- OUTSIDE RECORDS SUMMARY | 2024-06-12 01:14 | XMS_ITS | Clinical Summary ---
Author Organization [facility] Address [address] [place] [address] Phone Care Team Providers Care Stucco Mason Name Role Phone Tejas Rios Primary Care Provider [phone] Mayo Vergara DO Unavailable [phone] Allergies Active Allergy Reactions Criticality Noted Date Comments [place] Oil Other (see Comments) 08/23/2014 Apple Fruit Extract Other (see Comments) 2014 Latex Hives Medium 07/19/2020 Medications cetirizine (ZyrTEC) 10 MG Tablet Take 10 mg by mouth daily. 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 Iron deficiency 11/14/2021 Anemia 05/16/2021 Thrombocytosis 11/15/2020 Immunizations Immunization Administration Dates Next Due DTAP VACCINE 04/11/1997, 5,1993,07/10,1993 Hepatitis A Vaccine, Pediatric/adolescent, 2 Dose Schedule 12/10/2008,12/03/2006 Hepatitis B Vaccine, Pediatric/adolescent 01/08/1994,1993,1993 Human Papillomavirus Vaccine (HPV), quadrivalent 11/17/2010,11/08/2009,12/10/2008 MMR Vaccine 04/21/1997,09/14/1994 Meningococcal Vaccine 12/10/2008 OPV 04/11/1997, 5,1993,05/24 TDAP Vaccine 04/19/2007 Family History Medical History Relation Name Comments Cancer Mother Relation Name Status Comments Mother Social History Tobacco Use Types Packs/Day Years Used Date Smoking Tobacco: Never Smokeless Tobacco: Never Tobacco Cessation:Counseling Given: Not Answered Alcohol Use Standard Drinks/Week Comments Yes 0 (1 standard drink = 0.6 oz pur e alcohol) rarely PHQ-2 Answer Date Recorded Total Score - Questions 1-9 0 11/2021 Comments Unknown Sex and Gender Information Value Date Recorded Sex Assigned at Not on file Legal Sex Female 10:14 AM CDT Gender Identity Not on file Sexual Orientation Not on file Last Filed Vital Signs Vital Sign Reading Time Taken Comments Blood Pressure 120/82 12/04/2022 8:39 AM CDT Pulse 76 12/04/2022 8:39 AM CDT Temperature 36.8 C (98.2 F) 12/04/2022 8:39 AM CDT Respiratory Rate 18 12/04/2022 8:39 AM CDT Oxygen Saturation 100% 12/04/2022 8:39 AM CDT Inhaled Oxygen Concentration - - Weight 65.3 kg (143 lb 14.4 oz) 12/04/2022 8:39 AM CDT Height 160 cm (5' 3 ) 12/04/2022 8:39 AM CDT Body Mass Index 25.49 12/04/2022 8:39 AM CDT Plan of Treatment Health Maintenance Due Date Last Done Comments Hepatitis C Virus (HCV) Screening 1993 Pap Smear 02/08/2020 02/07/2017 Cervical Cancer Screening (CCS) 2023 HPV/Cotest 2023 Influenza Immunization (#1) 2023 12/0 05/2016, 03/11/2016, 03/12/2015, Additional history exists SARS-COV-2 Immunization ( - 2023- season) 2023 DTaP/Tdap/Td Immunization (8 - Td or Tdap) 03/02/2024 03/02/2014, 04/19/2007, 04/11/1997, Additional history exists Respiratory Syncytial Virus (RSV) Immunization (Adult) (1 - 1-dose 75+ series) 2068 Hepatitis B Immunization Completed 994, 1993, 1993 Meningococcal Immunization (ACWY) Aged Out 03/02/2014, 12/10/2008 No longer eligibl e based on patient's age to complete this topic Pneumococcal Immunization Combined Aged Out No longer eligible based on patient's age to complete this topic Rotavirus Immunization Aged Out No lo nger eligible based on patient's age to complete this topic 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
--- OUTSIDE RECORDS SUMMARY | 2024-06-12 01:15 | XMS_ITS | Referral Summary ---
Author Organization [facility] Address [address] [place] [address] Care Team Providers Care Game Moderator Name Role Phone Tejas Rios MD Primary Care Provider [phone] Source Comments [facility],non-[facility] Affiliates and Associated Physician Practices is amultiple site organization consisting of ambulatory clinics and hospital sitesin [place], [place], [place] and [place]. This disclosure is being madepursuant to the Care Everywhere program and may not contain all information available regarding this patient. Last updated 17.[facility] Allergies Active Allergy Reactions Criticality Noted Date Comments Latex Urticaria Medium 07/19/2020 Medications * Be aware that medications may not be up to date on this document. Alwaysverify current medications with the patient. Medication Sig Dispensed Refills Start Date End Date Status gabapentin (NEURONTIN) 100 MG capsuleIndications:V ulvar itching Take 3 (three) capsules by mouth at bedtime 30 capsule 3 02/28/2021 Active Active Problems Problem Noted Date Diagnosed Date Allergic rhinitis due to animal hair and dander 02/28/2021 Allergic rhinitis due to food 02/28/2021 Chronic sinusitis 02/28/2021 Deviated nasal septum 02/28/2021 Asthma 09/19/2020 Thyroid nodule 09/15/2020 Overview (09/19/2020): Last Assessment & Plan: I looked at Mrs. gwen kelley thyroid under our ultrasound machine. I see a very normal thyroid gland without any well-defined, solid nodules. 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
--- OUTSIDE RECORDS SUMMARY | 2024-06-12 01:15 | XMS_ITS | Referral Summary ---
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
--- OUTSIDE RECORDS SUMMARY | 2024-06-12 01:15 | XMS_ITS | Patient Health Summary ---
Author Organization [facility] Address [address] [place] [address] Care Team Providers Care Mechanic Field Service Name Role Phone Tejas Rios MD Primary Care Provider [phone] Note from [facility],non-owned Affiliates and Associated Physician Practices is amultiple site organization consisting of ambulatory clinics and hospital sitesin [place], [place], [place] and [place]. This disclosure is being madepursuant to the Care Everywhere program and may not contain all information available regarding this patient. Last updated 17.[facility] Allergies * Latex(Urticaria) -Medium Criticality Medications * Be aware that medications may not be up to date on this document. Alwaysverify current medications with the patient. 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 Pulse 99 08/15/2020 2:01 PM CDT Temperature 36.2 C (97.2 F) 08/15/2020 2:01 PM CDT Respiratory Rate 20 08/15/2020 2:01 PM CDT Oxygen Saturation 100% 08/15/2020 2:01 PM CDT Inhaled Oxygen Concentration - - Weight 71.2 kg (157 lb) 02/28/2021 10:05 AM FURNITURE DUSTER Height 160 cm (5' 3 ) 02/28/2021 10:05 AM FURNITURE DUSTER Body Mass Index 27.81 02/28/2021 10:05 AM FURNITURE DUSTER Procedures * CULTURE YEAST(Performed 09/19/2020) Performed for LSC (lichen simplex chronicus), Vulvar itching * URINALYSIS W/MICROSCOPIC REFLEX TO CULTURE(Performed 08/15/2020) Performed for Hematuria, unspecified type * CULTURE URINE REFLEXED III(Performed 08/15/2020) Performed for Hematuria, unspecified type * URINALYSIS AUTO - POINT OF CARE (AMB) [facility](Performed 08/15/2020) Performed for Hematuria, unspecified type * US THYROID(Performed 08/18/2018) Performed for Disorder of thyroid gland Results * CULTURE YEAST (09/19/2020 1:14 PM CDT) Pathologist [facility] Culture Yeast with ID LUDIVINA Comment: CULTURE, YEAST, W/IDENTIFICATION Micro Number: [id number] Test Status: Final Specimen Source: VULVA Specimen Quality: Adequate Result: No fungal growth at 2 Weeks Test Performed at: [facility] [employer] [address] SHANON HELTON MD Microbiology ENTIRE VULVA / Unknown 09/19/2020 1:14 PM CDT 09/20/2020 2:07 AM CDT Mackenzie Miller APRN-SUPERVISOR [facility] - MICRO BIOLOGY ORDERABLES [address] [address] * CULTURE URINE REFLEXED III (08/15/2020 2:42 PM CDT) Reflexive Urine Culture See Below [facility] Comment: NO CULTURE INDICATED Test Performed at: [address] [address] SHANON HELTON MD 08/15/2020 2:42 PM CDT 08/16/2020 1:41 AM CDT Rashmi Gonzalez APRN-SUPERVISOR [facility] - MICROBI OLOGY ORDERABLES Performing Organization Address [facility] Co de Phone Number [address] [address] * URINALYSIS W/MICROSCOPIC REFLEX TO CULTURE (08/15/2020 2:42 PM CDT) Color UA YELLOW YELLOW [facility] Appearance CLEAR CLEAR [facility] Specific [place] UA 1.027 1.001 - 1.035 [facility] pH UA 6.5 5.0 - 8.0 [facility] Glucose UA NEGATIVE NEGATIVE [facility] Bilirubin UA NEGATIVE NEGATIVE [facility] Ketone UA NEGATIVE NEGATIVE [facility] Blood UA NEGATIVE NEGATIVE [facility] Protein UA NEGATIVE NEGATIVE [facility] Nitrite NEGATIVE NEGATIVE [facility] Leukocyte Esterase NEGATIVE NEGATIVE [facility] WBC UA NONE SEEN < OR = 5 /HPF [facility] RBC UA 0-2 < OR = 2 /HPF [facility] Epithelial Cell UA 0-5 < OR = 5 /HPF [facility] Bacteria UA NONE SEEN NONE SEEN /HPF [facility] Hyaline Casts NONE SEEN NONE SEEN /LPF [facility] Comment: Test Performed at: [address] [address] SHANON HELTON MD Urine URINE SPECIMEN OBTAINED BY SINGLE CATHETERIZATION OF URINARY BLADDER / Unknown 08/15/2020 2:42 PM CDT 08/16/2020 1:41 AM CDT Rashmi Gonzalez APRN-SUPERVISOR [facility] - URINALY SIS ORDERABLES Performing Organization Address [facility] Co de Phone Number [address] [address] * URINALYSIS AUTO - POINT OF CARE (AMB) [facility] (08/15/2020 2:07 PM CDT) Glucose UA neg Bilirubin UA POCT neg Ketones UA POCT neg Specific [place] UA 1.025 Blood Urine POCT 10 pH UA 6.5 Protein UA 0.15 Urobilinogen UA 3.5 Nitrite UA neg WBC UA 15 Urine URINE / Unknown 08/15/2020 2 :07 PM CDT Rashmi Gonzalez ROPE SILICA MACHINE OPERATOR-SUPERVISOR [facility] - POINT O F CARE ORDERABLES * US THYROID (08/18/2018 1:40 PM CDT) Anatomical Region Laterality Modality Chest Ultrasound 08/18/2018 4:08 PM CDT Impressions 08/18/2018 4:09 PM CDT Negative thyroid ultrasound Reading Radiologist: Iker Urena MD on 08/18/2018 at 4:09 PM Narrative 08/18/2018 4:09 PM CDT EXAM: US THYROID*[id number] INDICATION: Disorder of thyroid, unspecified COMPARISON: none available FINDINGS: The right thyroid lobe measures 4.1 x 1.7 x 1.6 cm The left thyroid lobe measures 4.2 x 1.5 x 1.67 m The isthmus measures 3 mm in thickness Bilateral thyroid lobes are normal in size and acoustic texture. A discrete thyroid mass or nodule is not identified. There is normal blood flow to bilateral thyroid lobes. There is no soft tissue mass or fluid collection adjacent to the thyroid. Procedure Note Iker Urena MD - 08/18/2018 EXAM: US THYROID*[id number] INDICATION: Disorder of thyroid, unspecified COMPARISON: none available FINDINGS: The right thyroid lobe measures 4.1 x 1.7 x 1.6 cm The left thyroid lobe measures 4.2 x 1.5 x 1.67 m The isthmus measures 3 mm in thickness Bilateral thyroid lobes are normal in size and acoustic texture. A discrete thyroid mass or nodule is not identified. There is normal blood flow to bilateral thyroid lobes. There is no soft tissue mass or fluid collection adjacent to the thyroid. IMPRESSION Negative thyroid ultrasound Reading Radiologist: Iker Urena MD on 08/18/2018 at 4:09 PM Juanjo Pate MD ORDERABLES Care Teams Mechanic Field Service Relationship Specialty Start Date End Date Tejas Rios MD [facility] - General 07/18/20
--- OUTSIDE RECORDS SUMMARY | 2024-06-12 01:15 | XMS_ITS | Patient Health Record ---
Author Organization [facility] Address [address] [place], [place] [address] Care Team Providers Care Prison Psychiatrist Name Role Phone Juanjo Kim Primary Care Provider [phone] Migration, Provider Unavailable Unavailable Allergies Allergen (clinical drug ingredient) Drug/Non Drug Allergy documented on EMR Reaction Allergy Type Onset Date Status ALLERGIC TO ALLERGY SHOTS (uncoded) hives Allergy Active Reason For Referral No Information Medications Medication SIG (Take, Route, Frequency, Duration) Notes Start Date End Date Status Montelukast Sodium 10 MG 1 tab(s) orally once a day (in the evening) for 30 days 08/13/2018 Active Azelastine HCl 137 MCG/SPRAY 2 spray(s) intranasally 2 times a day for 30 day(s) 08/13/2018 Active lamoTRIgine 100 MG 1 tab(s) orally 2 ti mes a day for 30 day(s) Active EpiPen 2-Abdirizak 0.3 MG/0.3ML 0 mg intramusc ularly once for 1 dose(s) 08/13/2018 Active ARIPiprazole 10 MG 1 tab(s) orally once a day for 30 day(s) Active Problems Problem Type SNOMED Code ICD Code Onset Dates Problem Status W/U Status Risk Notes Problem Disorder of thyroid gland (66493638) Disorder of thyroid, unspecified (E07.9) Active confirmed Problem Allergic rhinitis due to food (631830809) Allergic rhinitis due to food (J30.5) Active confirmed Problem Allergic rhinitis caused by animal hair and dander (416175428877061 ) Allergic rhinitis due to animal (cat) (dog) hair and dander (J30.81) Active confirmed Problem Chronic sinusitis (75577029) Chronic sinusitis, unspecified (J32.9) Active confirmed Problem Deviated nasal septum (471532048) Deviated nasal septum (J34.2) Active confirmed Problem Hypertrophy of nasal turbinates (89988644) Hypertrophy of nasal turbinates (J34.3) Active confirmed Encounters Encounter Location Date Provider Diagnosis [facility] [address] [facility] [address] [place], [place] [id number] 03/21/2024 Provider Migration Plan Of Treatment No Information Insurance Providers Payer Name Payer Address Payer Phone Subscriber Number Group Number Insured Name Patient Relationship to Insured Coverage Start Date Coverage End Date [facility] [address] [address] [place] [address] [phone] [id number] Monroe Mckeon ([facility]) Self - patient is the insured Medical (General) History Medical History History ICD Code Pertinent Medical History: H istory of Allergies, Nose problems, Migraine headaches, Anxiety/Depression, OTHER MEDICATIONS: LAUROXIL, BENZOTRIOPI NE, HYDROXYZINE tongue swelling with scit in past Surgical History Surgery Date(Month/Year) pilonidal cystectomy balloon dilation for sinuses ting izquierdo 2018
--- OUTSIDE RECORDS SUMMARY | 2024-06-12 01:15 | XMS_ITS | Continuity of Care Document ---
Author Name [facility] Organization [facility] Care Team Providers Care Smocking Machine Operator Name Role Phone [facility] Unavailable Unavailable Problems Combined list of problems from Department of [facility] and [facility] facilities. It does not include entries that were removed or entered in error. Problem Status Onset Date Problem Type Date of Resolution Comme nts Source asthma Active Condition DoD Allergies, Adverse Reactions, Alerts Combined list of allergies from Department of [facility] and [facility] facilities. It does not include entries that were removed or entered in error. Substance Category Reaction Severity Reaction type Status Date Reported Comments Source ALMOND OIL (ALMOND OIL) Food allergy (disorder) Anaphylaxis active [address] [place] [address] APPLE FLAVOR (APPLE FLAVOR) Drug allergy (disorder) Anaphylaxis active [address] [place] [address] Immunizations Combined list of available immunizations from the Department of [facility] and [facility] facilities. 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 Status Comments Source typhoid Vi capsular polysaccharid e vaccine 2 2017 MARIALUISA HUBBARD [id number] Sanofi Pasteur ([facility]) complet ed typhoid Vi capsular polysacch aride vaccine DoD Influenza, injectable, quadrivalent, preservative free 0 2016 [id number] Seqirus (SEQ) comple t ed Influenza , injectabl e, quadrival ent, preservat suzette free DoD Influenza, injectable, quadrivalent, preservative free 0 2015 [id number] Seqirus (SEQ) comple t ed Influenza , injectabl e, quadrival ent, preservat suzette free DoD influenza, live, intranasal, quadrivalent 0 2014 [id number] 149 St[employer]. (MED) complet ed influenza , live, intranasa l, quadrival ent DoD typhoid Vi capsular polysaccharid e vaccine 1 2014 Unknown, Provider [id number] Sanofi Pasteur ([facility]) complet ed typhoid Vi capsular polysacch aride vaccine DoD measles and rubella virus vaccine 0 2014 04 () Not Given measles and rubella virus vaccine DoD hepatitis B vaccine, pediatric or pediatric/ado lescent dosage 0 2014 08 () Not Given hepatitis B vaccine, pediatric or pediatric /adolesce nt dosage DoD varicella virus vaccine 0 2014 21 () Not Given varicella virus vaccine DoD hepatitis A vaccine, adult dosage 0 2014 52 () Not Given hepatitis A vaccine, adult dosage DoD poliovirus vaccine, inactivated 1 2013 JOBY TENORIO [id number] 10 Sanofi Pasteur ([facility]) complet ed polioviru s vaccine, inactivat ed DoD yellow fever vaccine 1 2013 JOBY TENORIO [id number] Sanofi Pasteur ([facility]) complet ed yellow fever vaccine DoD tuberculin skin test; purified protein derivative solution, intradermal 1 2013 JOBY TENORIO [id number] Other (OTH) complet ed tuberculi n skin test; purified protein derivativ e solution, intraderm al DoD meningococcal polysaccharid e (groups A, C, Y and W-135) diphtheria toxoid conjugate vaccine (MCV4P) 1 2013 JOBY TENORIO [id number] Sanofi Pasteur ([facility]) complet ed meningoco ccal polysacch aride (groups A, C, Y and W-135) diphtheri a toxoid conjugate vaccine (MCV4P) DoD tetanus toxoid, reduced diphtheria toxoid, and acellular pertu is vaccine, adsorbed 1 2013 JOBY TENORIO [id number] 115 SmithKline ([facility]B) complet ed tetanus toxoid, reduced diphtheri a toxoid, and acellular pertussis vaccine, adsorbed DoD Adenovirus, type 4 and type 7, live, oral 1 2013 JOBY TENORIO [id number] 143 [employer] (BRR) complet ed Adenoviru s, type 4 and type 7, live, oral DoD influenza, live, intranasal, quadrivalent 1 2013 JOBY TENORIO [id number] 149 [employer] (MED) complet ed influenza , live, intranasa l, quadrival ent DoD Encounters Combined list of: 1) Encounters from Department of Veterans Affairs facilities going backup to the last 18 months, not all VA inpatient encounters are included; 2) Encounters from the Department of Defense facilities going backup to 280 months. Location Location Details Encounter Type Encounter Number Reason For Visit Attending Provider ADM Date DC Date Status [facility] Hearing Conservat ion) OUTPATIENT [id number] NIMA SALTER Estella 02/24 Released w/o Limitations [facility] D Hearing Conserv ation) [facility] Optometry Clinic) OUTPATIENT [id number] THUY DOBSON 02/24 Released w/o Limitations [facility] D Optomet ry Clinic) [facility] Recruit Medical Process) OUTPATIENT [id number] INITIAL INPROCE SSING BENITA CRUZ 03/02 Released w/o Limitations [facility] D Recruit Medical Process ) [facility] Fourth BN BAS) OUTPATIENT [id number] Notes Entered by: Ryder KAUFMAN 08 Mar 2014 0628 ------- ------- ------- ------- -- Bora/4005 - PATRIZIA Perez 03/08 Released w/o Limitations [facility] Fourth BN BAS) [facility] Well Women Clinic) OUTPATIENT [id number] Notes Entered by: Isabel MENDIETA 16 Mar 2014 1241 ------- ------- ------- ------- -- WALKER CARR 03/16 Released w/o Limitations [facility] D Well Women Clinic) [facility] Recruit Medical Process) OUTPATIENT [id number] 2ND VISIT FOR INPROCE SSING ABRAHAM DEVI 03/31 Released w/o Limitations [facility] D Recruit Medical Process ) [facility]) OUTPATIENT [id number] FLAQUITO Cruz 07/02 Released with Work/Duty Limitations [facility]( [facility] [place]) [facility] [place]) OUTPATIENT [id number] f/u ankle FLAQUITO MONGE 07/26 Released with Work/Duty Limitations [facility]( [facility]) [facility]( [facility] OUTPATIENT [id number] Notes Entered by: VERONICA VIGIL 29 Jul 2014 1129 ------- ------- ------- ------- -- Rt Ankle Pn VERONICA VIGIL 07/29 Released w/o Limitations [facility]( Sports Medicin e- [facility]) [facility] [id number] Notes Entered by: VERONICA VIGIL 03 Aug 2014 0531 ------- ------- ------- ------- -- VERONICA Hadley 08/03 Released w/o Limitations [facility]( Sports Medicin [facility]- [facility]) [facility]( or Medicine- [place] [facility]) OUTPATIENT [id number] trt VERONICA VIGIL 08/05 Released w/o Limitations [facility]( Sports Medicin [facility]- [facility]) [facility](Sp or Medicine- [facility]) OUTPATIENT [id number] lort VERONICA VIGIL 08/10 Released w/o Limitations [facility]( Sports Medicin [facility]- [facility]) [facility](Sp orts Medicine- [place] [facility]) OUTPATIENT [id number] lort VERONICA VIGIL 08/12 Released w/o Limitations [facility]( Sports Medicin [facility]- [facility]) [facility]) TELE CONSULT [id number] Notes Entered by: Delmer MENDIETA 16 Aug 2014 0850 ------- ------- ------- ------- -- PT was given a Light Duty until [id number] . FLAQUITO MONGE 08/16 [facility]) [facility]) OUTPATIENT [id number] trVERONICA Owens 08/17 Released w/o Limitations [facility]( [facility]) OUTPATIENT [id number] Notes Entered by: VERONICA VIGIL 19 Aug 2014 0545 ------- ------- ------- ------- -- VERONICA Hadley 08/19 Released w/o Limitations [facility]( [facility]) [facility]) OUTPATIENT [id number] breathi ng issues with exertio n FLAQUITO MONGE 08/23 Released w/o Limitations [facility]) [facility]) OUTPATIENT [id number] asthma FLAQUITO MONGE 09/20 Released with Work/Duty Limitations [facility]) [facility]) OUTPATIENT [id number] Notes Entered by: ASHLEY WILLIAM 30 Sep 2014 1250 ------- ------- ------- ------- -- insect bite FLAQUITO MONGE 09/30 Released w/o Limitations [facility]) [facility]) OUTPATIENT [id number] seps FLAQUITO Newton 10/04 Released w/o Limitations [facility]( Psychiatric) [facility]( munizatio n [facility] 237) OUTPATIENT [id number] Notes Entered by: ONEIL MORAES 12 Jun 2017 1507 ------- ------- ------- ------- -- MARINE WAQAR MARIALUISA HUBBARD Yohana 06/12 Released w/o Limitations [facility]( Immuniz ation [facility] 237) Procedures Combined list of: 1) Procedures from Department of Veterans Affairs facilities going back up to thelast 18 months, not all VA non-surgical procedures are included; 2) All procedures from the Department of Defense facilities. Procedure Procedure Type Code Date Perfomer Comments Sour e TYPHOID VACCINE, CAPSULAR POLYSACCHARIDE (VICPS), FOR INTRAMUSCULAR USE 06/13/19 18 [facility] IMMUNIZATION ADMINISTRATION (INCLUDES PERCUTANEOUS, INTRADERMAL, SUBCUTANEOUS, OR INTRAMUSCULAR INJECTIONS); EACH ADDITIONAL VACCINE (SINGLE OR COMBINATION VACCINE/TOXOID) 03/31/20 14 [facility] IMMUNIZATION ADMINISTRATION BY INTRANASAL OR ORAL ROUTE; EACH ADDITIONAL VACCINE (SINGLE OR COMBINATION VACCINE/TOXOID) (LIST SEPARATELY IN ADDITION TO CODE FOR PRIMARY PROCEDURE) 02/27/20 14 [facility] SCREENING TEST OF VISUAL ACUITY, QUANTITATIVE, BILATERAL 02/25/20 14 [facility] PHYS/OTH QUALIFIED HEALTH PARAPROFESSIONAL AIDE QUALIFIED,EDUCATIO N,TRAIN,LICENSURE/ REGULATION (WHEN APPLICABLE) EDUC SER RENDERED TO PATS IN A GRP SETTING (EG,,OBESI TY,OR DIABETIC INSTRUCT) 02/25/20 14 [facility] TYPHOID VACCINE, CAPSULAR POLYSACCHARIDE (VICPS), FOR INTRAMUSCULAR USE 10/05/19 15 [facility] ELECTROCARDIOGRAM, ROUTINE ECG WITH AT LEAST 12 LEADS; WITH INTERPRETATION AND REPORT 09/21/19 15 [facility] THERAPEUTIC PROCEDURE, 1 OR MORE AREAS, EACH 15 MINUTES; THERAPEUTIC EXERCISES TO DEVELOP STRENGTH AND ENDURANCE, RANGE OF MOTION AND FLEXIBILITY 08/20/19 15 [facility] THERAPEUTIC PROCEDURE, 1 OR MORE AREAS, EACH 15 MINUTES; THERAPEUTIC EXERCISES TO DEVELOP STRENGTH AND ENDURANCE, RANGE OF MOTION AND FLEXIBILITY 08/18/19 15 [facility] APPLICATION OF A MODALITY TO 1 OR MORE AREAS; HOT OR COLD PACKS 08/13/19 15 [facility] APPLICATION OF A MODALITY TO 1 OR MORE AREAS; ULTRASOUND, EACH 15 MINUTES 08/11/19 15 [facility] APPLICATION OF A MODALITY TO 1 OR MORE AREAS; ULTRASOUND, EACH 15 MINUTES 08/06/19 15 [facility] THERAPEUTIC PROCEDURE, 1 OR MORE AREAS, EACH 15 MINUTES; THERAPEUTIC EXERCISES TO DEVELOP STRENGTH AND ENDURANCE, RANGE OF MOTION AND FLEXIBILITY 08/04/19 15 [facility] APPLICATION OF A MODALITY TO 1 OR MORE AREAS; ELECTRICAL STIMULATION (MANUAL), EACH 15 MINUTES 07/30/19 15 [facility] Typhoid Vaccine Vi Capsular Polysaccharide, For Intramus Use Typhoid Vaccine Vi Capsular Polysaccharide, For Intramus Use 19464 06/14/19 18 MARIALUISA HUBBARD [facility] Immunization Administration By Injection, One Vaccine Immunization Administration By Injection, One Vaccine 94695 06/14/19 18 MARIALUISA HUBBARD [facility] Typhoid Vaccine Vi Capsular Polysaccharide, For Intramus Use Typhoid Vaccine Vi Capsular Polysaccharide, For Intramus Use 60448 10/05/19 15 ELOINA MENDIETA Typhoid, ViCPs; Series #: 1; .5 mL; IM; Right Arm; Mfg: Sanofi Pasteur; Lot: [id number]; VIS given (Ulysses: 09/04/11). DoD Immunization Administration By Injection, One Vaccine Immunization Administration By Injection, One Vaccine 21985 10/05/19 15 ELOINA MENDIETA [facility] ECG 12-Lead With Interpretation And Report ECG 12-Lead With Interpretation And Report [id number] 09/21/19 15 FLAQUITO MONGE [facility] Physical Therapy: ___ Se ion Segments, 15 Minutes Each Physical Therapy: ___ Session Segments, 15 Minutes Each 98791 08/20/19 15 VERONICA VIGIL [facility] Modalities Electrical Stimulation Attended Each 15 Minutes Modalities Electrical Stimulation Attended Each 15 Minutes 12344 08/20/19 15 VERONICA VIGIL [facility] Modalities Cryotherapy Cold Packs Modalities Cryotherapy Cold Packs 95110 08/20/19 15 VERONICA VIGIL [facility] Physical Therapy: ___ Se ion Segments, 15 Minutes Each Physical Therapy: ___ Session Segments, 15 Minutes Each [id number] 08/18/19 15 VERONICA VIGIL [facility] Modalities Electrical Stimulation Attended Each 15 Minutes Modalities Electrical Stimulation Attended Each 15 Minutes [id number] 08/18/19 15 VERONICA VIGIL [facility] Modalities Cryotherapy Cold Packs Modalities Cryotherapy Cold Packs 97103 08/18/19 15 VERONICA VIGIL [facility] Physical Therapy: ___ Se ion Segments, 15 Minutes Each Physical Therapy: ___ Session Segments, 15 Minutes Each [id number] 08/13/19 15 VERONICA VIGIL [facility] Modalities Electrical Stimulation Attended Each 15 Minutes Modalities Electrical Stimulation Attended Each 15 Minutes [id number] 08/13/19 15 VERONICA VIGIL [facility] Modalities Cryotherapy Cold Packs Modalities Cryotherapy Cold Packs 55388 08/13/19 15 VERONICA VIGIL [facility] Modalities Ultrasound Modalities Ultrasound 85766 08/11/19 15 VERONICA VIGIL [facility] Physical Therapy: ___ Se ion Segments, 15 Minutes Each Physical Therapy: ___ Session Segments, 15 Minutes Each 66516 08/11/19 15 VERONICA VIGIL [facility] Modalities Cryotherapy Cold Packs Modalities Cryotherapy Cold Packs 09717 08/11/19 15 VERONICA VIGIL [facility] Modalities Electrical Stimulation Attended Each 15 Minutes Modalities Electrical Stimulation Attended Each 15 Minutes 33716 08/11/19 15 VERONICA VIGIL [facility] Modalities Ultrasound Modalities Ultrasound 72486 08/06/19 15 VERONICA VIGIL [facility] Physical Therapy: ___ Se ion Segments, 15 Minutes Each Physical Therapy: ___ Session Segments, 15 Minutes Each 40547 08/06/19 15 VERONICA VIGIL [facility] Modalities Cryotherapy Cold Packs Modalities Cryotherapy Cold Packs 67694 08/06/19 15 VERONICA VIGIL [facility] Modalities Electrical Stimulation Attended Each 15 Minutes Modalities Electrical Stimulation Attended Each 15 Minutes 83217 08/06/19 15 VERONICA VIGIL [facility] Modalities Electrical Stimulation Attended Each 15 Minutes Modalities Electrical Stimulation Attended Each 15 Minutes 08244 07/31/19 15 VERONICA VIGIL [facility] Modalities Cryotherapy Cold Packs Modalities Cryotherapy Cold Packs 33437 07/31/19 15 VERONICA VIGIL [facility] Physician Supervised Injection Intramuscular Antibiotic Physician Supervised Injection Intramuscular Antibiotic 20314 03/31/20 14 JOBY SAVAGE [facility] Immunization Administration By Injection, One Vaccine Immunization Administration By Injection, One Vaccine 35928 03/31/20 14 JOBY SAVAGE [facility] Immunization Administration By Injection, Each Additional Vaccine Immunization Administration By Injection, Each Additional Vaccine 26449 03/31/20 14 JOBY SAVAGE [facility] Vaccines Viral Polio, Inactivated Vaccines Viral Polio, Inactivated 30644 03/31/20 14 JOBY SAVAGE IPV; Series #: 1; .5 mL; IM; Right Thigh; Mfg: [employer] Solution[employer] Pasteur; Lot: [id number]. [facility] Vaccines Viral Yellow Fever Vaccines Viral Yellow Fever 58000 03/31/20 14 JOBY SAVAGE Yellow Fever; Series #: 1; .5 mL; SC; Right Thigh; Mfg: Eka [employer] Solutionsofi Pasteur; Lot: [id number]. [facility] Venipuncture Venipuncture 88635 03/02/20 14 JOBY SAVAGE [facility] Vaccines Adenovirus Type 4 Live, For Oral Use Vaccines Adenovirus Type 4 Live, For Oral Use 78054 03/02/20 14 JOBY SAVAGE Adenovirus Type 4 and 7; Series #: 1; 2 gtts; PO; Right Thigh; Mfg: NN LABS; Lot: [id number]. [facility] Vaccines Adenovirus Type 7 Live, For Oral Use Vaccines Adenovirus Type 7 Live, For Oral Use 53160 03/02/20 14 JOBY SAVAGE [facility] Physician Supervised Injection Intramuscular Antibiotic Physician Supervised Injection Intramuscular Antibiotic 58082 03/02/20 14 JOBY SAVAGE [facility] Influenza Virus Vaccine Live Attenuated Intranasal Quadrivalent Influenza Virus Vaccine Live Attenuated Intranasal Quadrivalent 63227 03/02/20 14 JOBY SAVAGE Influenza, Live, Intranasal Quadrivalent (FluMist); Series #: 1; .2 mL; IN; Right Thigh; Mfg: [employer].; Lot: [id number]. [facility] Immunization Administration By Injection, One Vaccine Immunization Administration By Injection, One Vaccine 64117 03/02/20 14 JOBY SAVAGE [facility] Immunization Administration By Injection, Each Additional Vaccine Immunization Administration By Injection, Each Additional Vaccine 26597 03/02/20 14 JOBY SAVAGE [facility] Immunization Admin Intranasal / Oral Each Additional Vaccine Immunization Admin Intranasal / Oral Each Additional Vaccine 89778 03/02/20 14 JOBY SAVAGE Skin Test Anergy Tuberculin Intradermal Skin Test Anergy Tuberculin Intradermal 04699 03/02/20 14 MAYTE SAVAGETH R IPPD; Series #: 1; .1 mL; ID; Right Thigh; Mfg: Other; Lot: [id number]. [facility] Meningococcal (A, C, Y, W-135) Oligosacch Diphtheria Toxoid Conj Vacc 03/02/20 14 JOBY SAVAGE Meningococcal A,C,Y,W-135 Diphtheria Conj; Series #: 1; .5 mL; IM; Right Thigh; Mfg: Sanofi Pasteur; Lot: [id number]. [facility] Tdap Vaccine Tdap Vaccine 02222 03/02/20 14 JOBY SAVAGE Tdap; Series #: 1; .5 mL; IM; Right Thigh; Mfg: CEDU; Lot: [id number]. [facility] Screening Test Of Visual Acuity, Quantitative, Bilateral Screening Test Of Visual Acuity, Quantitative, Bilateral 47080 02/25/20 14 ANGÉLICA KIMBROUGH [facility] Spectacles Services Fitting Monofocal Except For Aphakia Spectacles Services Fitting Monofocal Except For Aphakia 98767 02/25/20 14 ANGÉLICA KIMBROUGH [facility] Audiometry Group Testing Audiometry Group Testing 59886 02/25/20 14 WALKER HOUSTON [facility] Physician Supervised Group Educational Services Physician Supervised Group Educational Services 76801 02/25/20 14 WALKER HOUSTON [facility] Social History Combined list of available smoking, tobacco, and other social history from Department of Defense and Veterans Affairs facilities. Social History Type Response Date Comment [facility] e This section is an empty social history section. [facility]
--- OUTSIDE RECORDS SUMMARY | 2024-06-12 01:15 | XMS_ITS | Encounter Summary ---
Author Organization [facility] Facility Care Team Providers Care Practice Management Consultant Name Role Phone Miscellaneous, Not In File Primary Care Provider Unavailable Tejas Rios MD Primary Care Provider [phone] Encounter Details Date Type Department Care Team (Latest Contact Info) Description 01/13/2015 Orders Only [facility] CLINCONV ProviderEnriqueta MD [address] [place] [id number] Social History Tobacco Use Types Packs/Day Years Used Date Smoking Tobacco: Never Assessed Comments Unknown Sex and Gender Information Value Date Recorded Sex Assigned at Not on file Legal 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 Historical Provider [facility] TIERA LEBRON Final Result * CARDIOLOGY REPORT (09/18/2016 12:00 AM CDT) Anatomical Region Laterality Modality Other Narrative 09/18/2016 12:00 AM CDT Ordered by an unspecified provider. us Historical Provider [facility] TIERA LEBRON Final Result documented in this encounter Visit Diagnoses Not on filedocumented in this encounter Care Teams Practice Management Consultant Relationship Specialty Start Date End Date Miscellaneous, Not In File PCP - General 07/27/16 1 Tejas Rios MD [address] [place] [address] PCP - General Family Medicine 07/15/20 documented as of this encounter
--- OUTSIDE RECORDS SUMMARY | 2024-06-12 01:16 | XMS_ITS ---
Author Organization [facility] Address [address] [place], [place] [address] Care Team Providers Care Laser Specialist Name Role Phone Juanjo Kim Primary Care Provider [phone] Migration, Provider Unavailable Unavailable Allergies Allergen (clinical drug ingredient) Drug/Non Drug Allergy documented on EMR Reaction Allergy Type Onset Date Status ALLERGIC TO ALLERGY SHOTS (uncoded) hives Allergy [facility] Conversion Encounter Medications Medication SIG (Take, Route, Frequency, Duration) [...] once a day for 30 day(s) Active Encounters Encounter Location Date Provider Diagnosis [facility] [address] [facility] [address] [place], [place] [id number] 03/21/2024 Provider Migration Plan Of Treatment No Information Progress Notes * Monroe HEREDIA ([facility]): (29 yo F)Acc No.[id number]:03/21/2024 Patient: Monroe YOUNGBLOOD ([facility]) Provider: Ariana Castaneda :1995 A ge:28 Y S ex:Female Date:03/21/2024 Address[place] [address] Pcp:Juanjo Kim Subjective: * Chief Complaints: * [facility] . [facility] En[facility] * Medical History: * Medications: T aking ARIPiprazole 10 MG Tablet 1 tab(s) orally once a day , Taking lamoTRIgine 100 MG Tablet 1 tab(s) orally 2 times a day , Taking EpiPen 2-Abdirizak 0.3 MG/0.3ML Solution Auto-injector 0 mg intramuscularly once , Taking Montelukast Sodium 10 MG Tablet 1 tab(s) orally once a day (in the evening) , Taking Azelastine HCl 137 MCG/SPRAY Solution 2 spray(s) intranasally 2 times a day * Allergies: A LLERGIC TO ALLERGY SHOTS: hives. Objective: * Vitals: * Physical Examination: Assessment: Plan: * Treatment: * * Electronic signature of Prov ider Migration on 06/12/2024 at 01:15 AM GREEN HOUSE MANAGER Sign off status: Pending * Provider: Ariana Castaneda Date: 1 05/22/2023 Generated for Pepe fournier/Marilee/Stormy on: 0 06/12/2024 01:15 AM GREEN HOUSE MANAGER
--- OUTSIDE RECORDS SUMMARY | 2024-06-12 01:16 | XMS_ITS | Clinical Summary ---
Author Organization [email or web address] Address [address] [place] [address] Care Team Providers Care Masonry Contractor Administrator Name Role Phone Tejas Rios MD Primary Care Provider [phone] Source Comments [email or web address],non-owned Affiliates and Associated Physician Practices is amultiple site organization consisting of ambulatory clinics and hospital sitesin [place], [place], [place] and [place]. This disclosure is being madepursuant to the Care Everywhere program and may not contain all information available regarding this patient. Last updated 17.[email or web address] Allergies Active Allergy Reactions Criticality Noted Date [...] witho ut status migrainosus, not intractable 01/04/2017 Family History Medical History Relation Name Comments None Known Father Cancer - Breast Maternal Aunt Diabetes - Type 2 Maternal Aunt Cancer - Colon Maternal Grandfather Hypertension Maternal Grandfather CAD (Coronary Artery Disease) Maternal Grandmother CVA Maternal Grandmother Depression Maternal Grandmother Hypertension Maternal Grandmother Cancer Mother cervical Depression Mother Osteoporosis Mother None Known Paternal Grandfather None Known Paternal Grandmother Relation Name Status Comments Father Alive Maternal Aunt Maternal Grandfather Maternal Grandmother Mother Alive Paternal Grandfather Paternal Grandmother Social History Tobacco Use Types Packs/Day Years [...] Comments Blood Pressure 108/64 02/28/2021 10:05 AM CHEMICAL ANALYTICAL SAMPLER Pulse 99 08/15/2020 2:01 PM CDT Temperature 36.2 C (97.2 F) 08/15/2020 2:01 PM CDT Respiratory Rate 20 08/15/2020 2:01 PM CDT Oxygen Saturation 100% 08/15/2020 2:01 PM CDT Inhaled Oxygen Concentration - - Weight 71.2 kg (157 lb) 02/28/2021 10:05 AM CHEMICAL ANALYTICAL SAMPLER Height 160 cm (5' 3 ) 02/28/2021 10:05 AM CHEMICAL ANALYTICAL SAMPLER Body Mass Index 27.81 02/28/2021 10:05 AM CHEMICAL ANALYTICAL SAMPLER Plan of Treatment Health Maintenance Due Date Last Done Comments HIV SCREENING 2008 HEPATITIS C SCREENING 03/20/2011 DTAP/TDAP/TD VACCINES (1 - Tdap) 2012 HEPATITIS B VACCINE (1 of 3 - 19+ 3-dose series) 2012 PNEUMOCOCCAL VACCINE (1 of 2 - PCV) 2012 COVID-19 VACCINE (1 - 2023-2 5 season) 2023 INFLUENZA VACCINE (#1) 2023 7, 03/12/2015 DEPRESSION SCREENING 04/08/2024 ZOSTER VACCINE (1 of 2) 2043 HIB VACCINE Aged Out No longer eligi ble based on patient's age to complete this topic HPV VACCINE Aged Out No longer eligi ble based on patient's age to complete this topic MENINGOCOCCAL (Group B) VACCINE Aged Out No longer eligible b ased on patient's age to complete this topic MENINGOCOCCAL VACCINE Aged Out No karolyn orly eligible based on patient's age to complete this topic Care Teams Masonry Contractor Administrator Relationship Specialty Start Date End Date Tejas Rios MD PCP - General 07/18/20
--- OUTSIDE RECORDS SUMMARY | 2024-06-12 01:16 | XMS_ITS | Continuity of Care Document ---
Author Organization [facility] Address [address] [facility] [place] [address] Phone Care Team Providers Care Brass Pickler Name Role Phone Tejas Rios MD Unavailable Unavailable Allergies, Adverse Reactions, Alerts Substance Reaction Status Criticality No Known Allergies Active No Inform ation Medications Medication Instructions Dosage Effective Dates (start - stop) Status Comments meloxicam 15 mg tablet take 1 tablet by oral route every day 15 MG - Active Procedures Procedure Date OFFICE/OUTPATIENT VISIT, EST OFFICE/OUTPATIENT VISIT, EST OFFICE/OUTPATIENT VISIT, EST PREV VISIT, EST, AGE 18-39 OFFICE/OUTPATIENT VISIT, EST OFFICE/OUTPATIENT VISIT, EST OFFICE/OUTPATIENT VISIT, EST OFFICE/OUTPATIENT VISIT, EST PREV VISIT, EST, AGE 18-39 OFFICE/OUTPATIENT VISIT, EST OFFICE/OUTPATIENT VISIT, EST OFFICE/OUTPATIENT VISIT, EST OFFICE/OUTPATIENT VISIT, EST PREV VISIT, NEW, AGE 18-39 Advance Directives Directive Yes / No Effective Date File Name No Information Encounters Encounter Description Practice Location Reason(s) For Visit Diagnoses Date Provider Providers Copied on Encounter OFFICE/OUTPA TIENT VISIT, EST [facility], [address] [place], [address], [place] tel:[phone] [facility] Medicine knee pain1 (chief complaint)w eight gain1 (chief complaint) Abnormal weight gainPain in left knee 4 Gabriel Lazaro. [address], [place], [place], [address] , [place]. tel:[phone] OFFICE/OUTPA TIENT VISIT, EST [facility], [address], [place], [place], [address], [place] tel:[phone] [facility] migraine1 (chief complaint) Migraine without aura, intractable, with status migrainosus 3 Gabriel Lazaro. [address], [place], [place], [address] , [place]. tel:[phone] OFFICE/OUTPA TIENT VISIT, EST [facility], [address], [place], [place], [address], [place] tel:[phone] [facility] headache1 (chief complaint) Migraine without aura, intractable, with status migrainosusEssenti al (primary) hypertension 3 Gabriel Lazaro. [address], [place], [place], [address] , [place]. tel:[phone] PREV VISIT, EST, AGE 18-39 [facility], [address], [place], [place], [address], [place] tel:[phone] [facility] physical (chief complaint) Encounter for general adult medical examination without abnormal findings 2 Gabriel Lazaro. [address], [place], [place], [address] , [place]. tel:[phone] OFFICE/OUTPA TIENT VISIT, EST [facility], [address], [place], [place], [address], [place] tel:[phone] [facility] migraine1 (chief complaint)t hyroid nodule1 (chief complaint)i aster deficiency (chief complaint)r ash1 (chief complaint) Migraine without aura, intractable, with status migrainosusEssenti al thrombocytosisThyr oid nodulePsoriasis 2 Gabriel Lazaro. [address], [place], [place], [address] , [place]. tel:[phone] OFFICE/OUTPA TIENT VISIT, EST [facility], [address], [place], [place], [address], [place] tel:[phone] [facility] rash1 (chief complaint) Lichen simplex chronicusPsoriasis 2 Gabriel Lazaro. [address], [place], [place], [address] , [place]. tel:[phone] OFFICE/OUTPA TIENT VISIT, EST [facility], [address], [place], [place], [address], [place] tel:[phone] [facility] hematuria1 (chief complaint)p latelet1 (chief complaint)r ash1 (chief complaint) HematuriaEssential thrombocytosisPsor iasisLichen simplex chronicus 2 Gabriel Lazaro. [address], [place], [place], [address] , [place]. [phone] OFFICE/OUTPA TIENT VISIT, [facility], [address], [place], [place], [address], [place] tel:[phone] [facility] biopsy1 (chief complaint) Rash 1 Gabriel Lazaro. [address], [place], [place], [address] , [place]. [phone] PREV VISIT, EST, AGE 18-39 [facility], [address] [place], [address], [place] tel:[phone] [facility] physical (chief complaint) Encounter for general adult medical examination without abnormal findings 1 Gabriel Lazaro. [address], [place], [place], [address] , [place]. [phone] OFFICE/OUTPA TIENT VISIT, [facility], [address], [place], [place], [address], [place] tel:[phone] [facility] thyroid nodule1 (chief complaint)h ematuria1 (chief complaint)p latelet1 (chief complaint)r ash1 (chief complaint) HematuriaThyroid noduleEssential thrombocytosisRash 1 Gabriel Das [address], [place], [place], [address] , [place]. tel:[phone] OFFICE/OUTPA TIENT VISIT, [facility], [address] [place], [address], [place] tel:[phone] [facility] hematuria1 (chief complaint)p latelet1 (chief complaint)t hyroid nodule1 (chief complaint) Thyroid noduleEssential thrombocytosisHema turiaFolate deficiency Jun- 1 Gabriel Das [address], [place], [place], [address] , [place]. tel:[phone] OFFICE/OUTPA TIENT VISIT, [facility], [address] [place], [address], [place] tel:[phone] [facility] hematuria1 (chief complaint)f olate` (chief complaint)p latelet1 (chief complaint)t hryoid (chief complaint)s kin nodule1 (chief complaint) Folate deficiencyHematuri aEssential thrombocytosisThyr oid noduleSebaceous cyst Jun-0 1 Gabriel Das [address], [place], [place], [address] , [place]. tel:[phone] OFFICE/OUTPA TIENT VISIT, [facility], [address] [place], [address], [place] tel:[phone] [facility] rash (chief complaint)g oiter1 (chief complaint) RashGoiter 1 Gabriel Das [address], [address] [place], [address] , [place]. tel:[phone] PREV VISIT, NEW, AGE 18-39 [facility], [address] [place], [address], [place] tel:[phone] [facility] Physical (chief complaint) Encntr for general adult medical exam w/o abnormal findings 0 Gabriel Lazaro. [address], [place], [place], [address] , [place]. tel:[phone] Family History Family Member Type Diagnosis Age At Onset Mother Problem Alive and well Sister Problem Alive and well Father Problem Alive and well Payers Payer name Insurance type Covered libertarian ID Authoriza titoam(s) No Information Social History Type Description Quantity Date Captured Comments Alcohol Use Details Caffeine Use Details Unknown Tobacco Use Status Current non-smoker Smoking Status Never smoker Sex Female Vital Signs Date / Time: Height Weight BMI Pulse Rate Blood Pressure Temperature Respiratory Rate Body Surface Area Head Circumference BMI percentile Pulse Ox Inhaled Ox 12:28 PM 63.00 in 152.00 lbs 26.9 3 kg/m eter (2) 58 /min 110/68 mm[Hg] 98.2 F 16 /min Chief Complaint And Reason For Visit From encounter dated '07/19/2023 12:27'. knee pain1 (chief complaint). Description: Pt has history of multiple left knee injuries as a childdue to sports related injury Pt c/o intermittent swelling left knee without pain for many years until last week. Pt c/o worsening swelling left knee and also she notices some sharp pain under the left knee cap. Pt denies any injury. Pt states that the pain is persistent but worse with ambulation. Pt states that she has been walking on her feet more recently at work. Pt denies any redness or warmth Pt denies any calf pain. weight gain1 (chief complaint). Description: Pt gained some weight recently Pt has not been diet and exercising Plan Of Treatment Date Type Action Status Referral Ordered: Physical Therapy (related to Pain in left knee) ordered Referral Ordered: LORNE LEIVA -[facility] : Orthopaedic Surgery (related to Pain in left knee) ordered Referral Referred To: LORNE LEIVA [address], [place], [phone] Ordered: Referrals: [facility] : Orthopaedic Surgery. LORNE LEIVA. Evaluate and treat ordered Referral Ordered: KNEE XRAY TWO-VIEW Left ordered Referral Referred To: Physical Therapy Ordered: Referrals: Physical Therapy. Evaluate and treat ordered Referral Ordered: Robina Gamboa -[facility] : Dermatology (related to Psoriasis) ordered Referral Referred To: Josselin Gonzalez MD [address] [place], [place], [address] Ordered: Referrals: Josselin Gonzalez MD. Evaluate and treat ordered Referral Referred To: Robina Gamboa Ordered: Referrals: [facility] : Dermatology. Robina Gamboa. Evaluate and treat ordered Referral Ordered: Dermatology (related to Rash) ordered Referral Ordered: Shabbir Ocasio -[facility] : Urology (related to Hematuria) ordered Referral Ordered: Hematology (related to Essential thrombocytosis) ordered Referral Ordered: CT ABDOMEN&PELVIS W/CONTRAST ordered Referral Referred To: Shabbir Ocasio [address] [place], [place], [phone] Ordered: Referrals: [facility] : Urology. Shabbir Ocasio. Evaluate and treat ordered Referral Ordered: Referrals: Hematology. Evaluate and treat ordered Referral Ordered: Gisel Mayer -[facility] : Internal Medicine : Endocrinology, Diabetes & Metabolism (related to Thyroid nodule) ordered Referral Referred To: Gisel Mayer [id number] [facility]
[address] [place], [place] [id number] Ordered: Referrals: [facility] : Internal Medicine : Endocrinology, Diabetes & Metabolism. Gisel Mayer. Evaluate and treat ordered Referral Ordered: Dermatology (related to Rash) ordered Referral Ordered: Referrals: Dermatology. Evaluate and treat ordered Referral Ordered: US THYROID ordered History Of Present Illness Encounter Date Complaint History Of Prese nt Illness weight gain1 Pt gained some w eight recently Pt has not been diet and exercising knee pain1 Pt has history o f multiple left knee injuries as a child due to sports related injury Pt c/o intermittent swelling left knee without pain for many years until last week. Pt c/o worsening swelling left knee and also she notices some sharp pain under the left knee cap. Pt denies any injury. Pt states that the pain is persistent but worse with ambulation. Pt states that she has been walking on her feet more recently at work. Pt denies any redness or warmth Pt denies any calf pain. migraine1 Pt has chronic m igraine headache Pt started ajovy last month and she is doing well Pt has not had any headache since starting ajovy. Pt denies any side effects Pt denies any head injury or waking up at night with headache. headache1 Pt has chronic m igraine and she has been having more migraine lately with more frequency and more intensity. Pt has blurred vision along with throbbing headache around frontal area Pt c/o photophobia and nausea. Pt denies any head injury or waking up at night with headache Pt has migraine almost daily Pt failed topamax, neurontin and amitriptyline and triptans. Pt also checked her bp at home which was elevated per patient to 140/90. Pt takes tylenol which helps. physical Pt needs annual physical. Pt has benign thyroid nodule Pt denies any dysphagia or neck pain Pt has chronic migraine since childhood Pt had multiple normal MRi of brain Pt failed topamax, amitriptyline and imitrex and none worked. Pt supposes to try aimovig but was not covered by insurance. Pt denies any acute headache . thyroid nodule1 Pt has thyroid n odule .Pt denies any dysphagia or neck pain. migraine1 Pt has chronic m igraine for years. Pt c/o throbbing headache whole head. with photophobia with nausea and blurred vision. Pt denies any head injury or waking up at night with headache. Pt has been having headache almost daily Pt denies any trigger factor. Pt has headache every day. pt needs FMLA form completed due to inability to work due to headache. Pt states that she can not drive with bad headache. Pt tried and failed topamax and amitriptyline in the past iron deficiency Pt has chronic h igh platelet and she contracted COVID almost one year ago and she became anemia afterward with iron deficiency and her hematology had to give her iron last month. pt states that her platelet was ok on recent lab. Pt denies any bleeding Pt denies any heavy period rash1 Pt states that r eden improved with pimecrolimus. Pt wants refill rash1 Pt c/o chronic i tching, dry, scaly, rash both inner thigh with occasional clear drainage from cracked skin for at least two years. Pt tried steroid, anti fungal , moisturizer and none helped. 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 Pt was told to go to [facility] Pt is frustrated Pt denies any dry eyes or dry moth. Pt had lab done which did not show any rheumatological condition. 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 Pt denies any joint pain. Pt saw rheumatology who basically did not have anything else to offer. Pt received a call from [facility] dermatology but she never made follow up raudel. Pt states that rash is getting worse with itching rash Pt c/o chronic i tching, dry, scaly, rash both inner thigh with occasional clear drainage from cracked skin for at least two years. Pt tried steroid, anti fungal , moisturizer and none helped. 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 Pt was told to go to [facility] Pt is frustrated Pt denies any dry eyes or dry moth. Pt had lab done which did not show any rheumatological condition. 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 Pt denies any joint pain platelet1 Pt has mild thro mbocytosis. Pt denies any bruising or bleeding Iron and ferritin ok. hematuria1 Pt denies any ur inary symptoms. Hematuria resolved. biopsy1 Pt presents for punch biopsy of chronic itchy and scaly rash both inner upper thigh area. Pt denies any allergy reaction to lidocaine and epi physical Pt needs annual physical. Pt has hematuria. Pt saw urology and had some work done and was told everything ok Pt has thrombocytosis. pt is seeing hematology and is getting work up. pt has thyroid nodule Pt denies any dysphagia or neck pain Pt had normal TFTs Pt went to see endo and had in office ultrasound which did not show any nodule . Pt has not followed up with [facility] for dermoid yet. Pt is off topamax and she still has intermittent migraine but she does not want to take anymore meds pt also is off geodon and she still has some auditory hallucination sometimes. Pt denies any suicidal or homicidal thought. Pt denies any crying spells. Pt states that one voice does tell her to hurt herself but she will never do anything. Pt c/o chronic itching, dry, scaly, rash both inner thigh with occasional clear drainage from cracked skin for at least two years. Pt tried steroid, anti fungal , moisturizer and none helped. 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 Pt was told to go to [facility] Pt is frustrated Pt denies any dry eyes or dry moth. rash1 Pt c/o chronic i tchy and scaly rash bilateral inguinal area. Pt denies any bleeding ,Pt failed ketoconazole and ketoconazole cream and steroid Pt c/o pain and itching sometimes waking her up from sleep platelet1 Pt has high plat elet Pt saw hematology and had lab done and iron borderline low and she was started on oral iron and her platelet is slightly better. hematuria1 Pt has hematuria Pt denies any UTI symptoms Pt denies any flank pain Pt has CT scheduled next week and her urology appointment in two weeks thyroid nodule1 Pt has benign ap pearing thyroid nodule Pt denies any dysphasia or neck pain. Pt has raudel with endo on 09/06/20. thyroid nodule1 Pt has thyroid n odule. TSH and TPO and TSI are ok Pt denies any dysphagia Pt has not heard from endo yet platelet1 Pt has persisten t mild thrombocytosis Pt denies any bruising or bleeding Pt states that her platelet has always been a little high hematuria1 pt has persisten t hematuria. Pt denies any pelvic pain UTI symptoms or flank pain, Pt made sure she did UA without her period. skin nodule1 Pt notices a sli ghtly tender subcutaneous nodule between her breast since yesterday Pt denies any redness or warmth or drainage. Pt denies any bite thryoid Pt has right rusty e thyroid nodule Pt denies any dysphagia or neck pain. her TSH is ok Lab missed TPO and TSI platelet1 Pt has mildly hi gh platelet pt denies any bruising or bleeding folate` Pt has low folat e hematuria1 pt has hematuria . Pt denies any UTi symptoms. pt states that she maybe on her period during lab testing goiter1 Pt states that s he has chronically enlarged thyroid .Pt denies any dysphagia or neck pain pt denies any sore throat Pt also told me she saw ENT in the past who also told her that her thyroid seems a little enlarged. . rash The patient pres ents for rash. Additional information: Pt c/o chronic itchy and scaly rash bilateral inguinal area. Pt denies any bleeding ,Pt failed ketoconazole and ketoconazole cream. Physical PT needs annual physical. Pt has schizoaffective disorder. pt has chronic migraine .Pt takes topamax and geodon from psychiatrist .Pt states that she is doing well on above meds .Pt denies any suicidal or homicidal thought ,Pt denies any crying spells. Pt has migraine twice per month and doing well. Pt denies any hearing voices Her mood is well. Pt notices dry patch of skin on both legs for 4 weeks pt notices itching .Pt denies any warmth or induration or drainage Pt notices scaly change. Pt states that the area are multiple patches and seems getting bigger. Pt tried some Aqua OTC moisture lotions which seems helps slightly. Pt denies any other complaints . Instructions Date Instruction Additional Infor mation No Information Assessments Type Assessment Date assessment Abnormal weight gain assessment Pain in left knee Mental Status Date Cognitive Assessment Orientation - [place] ed to time, place, person, situation.
[2024-06-12] MEDS: ACETAMINOPHEN 500 MG TABLET 1000 MG PO (06:40)
[2024-06-12] MEDS: LACTATED RINGERS 1,000 ML 30 ML IV CONT ×2 (06:50→08:28)
[2024-06-12] MEDS: KETOROLAC 15 MG/ML VIAL (*BKC) IV PUSH (07:00)
[2024-06-12 07:11] LABS: BEDSIDEPREGUCG Negative (Negative)
--- NOTE | 2024-06-12 07:21 | WPDHPUPDATE1 ---
History and Physical Update Update Date/Time: 06/12/24 07:21 History and Physical has been reviewed, including an updated exam of the patient. There are NO changes in the patient's condition. Risks, benefits, and alternatives have been discussed and questions answered. Patient agrees to proceed with procedure.
[2024-06-12] MEDS: fentaNYL CITRATE INJ (*CRX) 100 MCG/2 ML VIAL 25 MCG IV PUSH ×6 (08:38→08:59)
[2024-06-12] MEDS: oxyCODONE HCL (*CRX) 5 MG TAB IR PO (09:45)
--- NOTE | 2024-06-25 22:05 | P.OP_ITS ---
Procedure Note - Detailed Date of Procedure 07/01/24 Pre-op Diagnosis benign teratoma of ovary, mechanical compl of iud Post-op Diagnosis Same Procedure Performed Laparoscopic left oophorectomy and hysteroscopic removal of foreign body Surgeon Jarrell Conway MD Anesthesia General Indications Pelvic pain Description of Procedure The patient was taken to the operating room. She was prepped and draped in the dorsal lithotomy position after induction general anesthesia. A 5 mm incision was made with a scalpel on the abdominal skin in the left upper quadrant of the abdomen. A 5 mm trocar was inserted into the intra-abdominal cavity under direct visualization the scope. In the same fashion a 11 mm left lower quadrant trocar was inserted and a 11 mm infraumbilical trocar was inserted. Left oophorectomy was performed. The infundibulopelvic ligament was isolated, cauterized, transected. The para ovarian tissue was cauterized and transected with LigaSure cautery. The suspensory taken of the ovaries cauterized transected with LigaSure cautery. The ovaries placed in endobag and taken out the left lower quadrant trocar site. The pelvis was irrigated. The pneumoperitoneum was reduced. The trocars were removed. Skin was closed with subcuticular 4 micro. The patient's incisions were covered with Dermabond. She was taken recovery room in stable condition. Sponge lap and needle counts were correct x2. Attention was turned to the vaginal approach and hysteroscopy. A speculum was placed in the vagina. Cervix grasped with a tenaculum. Hysteroscope was inserted. The IUD was identified. The IUD was then grasped with a polyp force ps and taken that through the vagina. Complications No immediate complications Condition Stable Disposition Same day
== END 2024-06-12 10:45 | disposition home or self-care (01) ==
PROVIDERS: PCP Emergency Medicine; Visit Provider Obstetrics & Gynecology
PROC: (CPT 49320; principal; 2024-06-12 07:30)
PROC: 0U5B8ZZ Destruction of Endometrium, Via Natural or Artificial Opening Endoscopic (ICD-10-PCS; CPT 58563; 2024-06-12 07:30)
DX: D27.1 Benign neoplasm of left ovary (principal); T83.39XA Other mechanical complication of intrauterine contraceptive device, initial encounter; F32.A Depression, unspecified; F41.9 Anxiety disorder, unspecified; Y83.8 Other surgical procedures as the cause of abnormal reaction of the patient, or of later complication, without mention of misadventure at the time of the procedure; Z98.890 Other specified postprocedural states; Z79.51 Long term (current) use of inhaled steroids; Z87.891 Personal history of nicotine dependence; Z82.49 Family history of ischemic heart disease and other diseases of the circulatory system
CPT/HCPCS: 58661; 58579; 88305; A9270; J0330; J1100; J1885; J2003; J2250; J2405; J2704; J3010; J7120